=== PATIENT | male | born 1950 | race Caucasian/White ===

== ENCOUNTER 2021-10-01 09:39 | Inpatient (IN) ==
[2021-10-01] MEDS ORDERED: 0.9 % Sodium Chloride 1,000 ML ONE ×2 (10:43→11:14)
[2021-10-01] MEDS ORDERED: *HR* FentaNYL (PF) 100 MCG/2 ML VIAL ONE (11:13)
[2021-10-01] MEDS ORDERED: *HR* Heparin 10,000 UNIT/10 ML VIAL ONE (11:14)
[2021-10-01] MEDS ORDERED: *HR* Midazolam HCl 2 MG/2 ML VIAL ONE (11:14)
[2021-10-01] MEDS ORDERED: Nitroglycerin 1,000 MCG/5 ML VIAL IV ONE (11:14)
[2021-10-01] MEDS ORDERED: Heparin 1,000 UNITS/500 mL 500 ML ONE (11:14)
[2021-10-01] MEDS ORDERED: ISOVUE-370 200 ML INFUS..BTL ONE (11:14)
[2021-10-01] MEDS ORDERED: Perflutren Lipid Microsphere 1.3 ML in 0.9 % Sodium Chloride 8.7 ML IVP PRN (13:30)
[2021-10-01] MEDS ORDERED: Dextrose Gel 15 GM/37.5 ML TUBE PO PRN ×2 (14:14)
[2021-10-01] MEDS ORDERED: D5% in Water 1,000 ML IVC PRN (14:14)
[2021-10-01] MEDS ORDERED: *HR* Dextrose 50 % in Water (Syg) 50 ML SYRINGE IVP PRN (14:14)
[2021-10-01] MEDS: Insulin LISPRO 300 UNITS/3 ML VIAL SUBQ SCH (16:02)
[2021-10-01] MEDS: Metoprolol XL (24 HR) Succ 25 MG TAB.ER.24H PO SCH (16:03)
[2021-10-01 16:38] LABS: Basophils % 0.4 %; Eosinophils # 0.1 K/mcL (0.0-0.6); Eosinophils % 2.9 %; Hematocrit 37.7 % (37.5-50.1); Hemoglobin 12.2 g/dL (12.9-16.9); Immature Granulocytes % 0.4 % (0-4); Immature Platelets 6.6 % (1.1-6.1); Lymphocytes # 0.7 K/mcL (0.6-4.6); Lymphocytes % 14.5 %; Mean Corpuscular HGB Conc 32.4 g/dL (31.6-35.5); Mean Corpuscular Hemoglobin 27.5 pg (28.0-33.3); Mean Corpuscular Volume 85.1 fL (83.0-100.0); Mean Platelet Volume 11.3 fL (9.4-12.4); Monocytes # 0.4 K/mcL (0.0-1.3); Monocytes % 7.2 %; Neutrophils # 3.6 K/mcL (1.6-8.9); Platelet Count 129 K/mcL (140-400); Red Blood Count 4.43 M/mcL (4.19-5.50); Red Cell Distribution Width 14.8 % (11.5-14.5); Segmented Neutrophils % 74.6 %; White Blood Count 4.8 K/mcL (4.3-11.1)
[2021-10-01 16:54] LABS: BUN/Creatinine Ratio 23 (6-26); Blood Urea Nitrogen 17 mg/dL (8-23); Calcium 8.9 mg/dL (8.6-10.3); Carbon Dioxide 27 mEq/L (23-29); Chloride 108 mEq/L (98-107); Glucose 147 mg/dL (70-105); Osmolality,Calculated 292 (280-300); Phosphorous 3.2 mg/dL (2.7-4.5); Potassium 3.9 mEq/L (3.5-5.1); Sodium 139 mEq/L (136-145); eGFR For African Americans > 60 (> 60); eGFR For Non-African Americans > 60 (> 60)
[2021-10-01 20:13] LABS: Basophils % 0.4 %; Eosinophils # 0.1 K/mcL (0.0-0.6); Eosinophils % 1.8 %; Hematocrit 38.9 % (37.5-50.1); Hemoglobin 12.4 g/dL (12.9-16.9); Immature Granulocytes % 0.4 % (0-4); Lymphocytes # 0.6 K/mcL (0.6-4.6); Lymphocytes % 11.1 %; Mean Corpuscular HGB Conc 31.9 g/dL (31.6-35.5); Mean Corpuscular Hemoglobin 27.4 pg (28.0-33.3); Mean Corpuscular Volume 85.9 fL (83.0-100.0); Mean Platelet Volume 11.3 fL (9.4-12.4); Monocytes # 0.4 K/mcL (0.0-1.3); Monocytes % 6.7 %; Neutrophils # 4.6 K/mcL (1.6-8.9); Platelet Count 156 K/mcL (140-400); Red Blood Count 4.53 M/mcL (4.19-5.50); Red Cell Distribution Width 14.7 % (11.5-14.5); Segmented Neutrophils % 79.6 %; White Blood Count 5.7 K/mcL (4.3-11.1)
[2021-10-01 20:19] LABS: INR 1.2; Prothrombin Time 12.9 Seconds (9.4-12.1)
[2021-10-01 20:22] LABS: Activated Partial Thrombo Time 30.2 Seconds (26.0-36.0)
[2021-10-01] MEDS: Chlorhexidine Rinse 15 ML MOUTHWASH MM SCH (20:23)
[2021-10-01 20:26] LABS: Estimated Average Glucose 128 mg/dl; Hemoglobin A1C 6.1 %
[2021-10-01 20:31] LABS: BUN/Creatinine Ratio 20 (6-26); Blood Urea Nitrogen 17 mg/dL (8-23); Calcium 9.2 mg/dL (8.6-10.3); Carbon Dioxide 28 mEq/L (23-29); Chloride 107 mEq/L (98-107); Chol/HDL Ratio 3.2 (0-4.9); Cholesterol 105 mg/dL (< 200); Glucose 111 mg/dL (70-105); HDL Cholesterol 33 mg/dL (40-59); LDL Cholesterol,Calculated 56 mg/dL (< 100); Osmolality,Calculated 290 (280-300); Potassium 3.9 mEq/L (3.5-5.1); Sodium 139 mEq/L (136-145); Triglycerides 80 mg/dL (< 150); eGFR For African Americans > 60 (> 60); eGFR For Non-African Americans > 60 (> 60)
[2021-10-01] MEDS ORDERED: Insulin LISPRO 300 UNITS/3 ML VIAL SUBQ SCH (21:00)
[2021-10-02 01:17] LABS: Basophils % 0.3 %; Eosinophils # 0.1 K/mcL (0.0-0.6); Eosinophils % 2.1 %; Hematocrit 37.1 % (37.5-50.1); Hemoglobin 12.2 g/dL (12.9-16.9); Immature Granulocytes % 0.2 % (0-4); Lymphocytes # 0.9 K/mcL (0.6-4.6); Mean Corpuscular HGB Conc 32.9 g/dL (31.6-35.5); Mean Corpuscular Volume 85.3 fL (83.0-100.0); Mean Platelet Volume 11.3 fL (9.4-12.4); Monocytes # 0.5 K/mcL (0.0-1.3); Monocytes % 9.1 %; Neutrophils # 4.2 K/mcL (1.6-8.9); Platelet Count 144 K/mcL (140-400); Red Blood Count 4.35 M/mcL (4.19-5.50); Red Cell Distribution Width 14.6 % (11.5-14.5); Segmented Neutrophils % 73.3 %; White Blood Count 5.7 K/mcL (4.3-11.1)
[2021-10-02 01:37] LABS: BUN/Creatinine Ratio 20 (6-26); Blood Urea Nitrogen 17 mg/dL (8-23); Calcium 8.9 mg/dL (8.6-10.3); Carbon Dioxide 25 mEq/L (23-29); Chloride 107 mEq/L (98-107); Glucose 101 mg/dL (70-105); Osmolality,Calculated 292 (280-300); Phosphorous 3.5 mg/dL (2.7-4.5); Potassium 3.7 mEq/L (3.5-5.1); Sodium 140 mEq/L (136-145); eGFR For African Americans > 60 (> 60); eGFR For Non-African Americans > 60 (> 60)
[2021-10-02] MEDS ORDERED: Aspirin 81 MG TAB.CHEW PO ONE (06:00)
[2021-10-02] MEDS: Metoprolol XL (24 HR) Succ 25 MG TAB.ER.24H PO SCH (08:48)
[2021-10-02] MEDS: Chlorhexidine Rinse 15 ML MOUTHWASH MM SCH ×2 (08:48→20:38)
[2021-10-02] MEDS ORDERED: Aspirin Enteric Coated 81 MG Tablet PO SCH (09:00)
[2021-10-02] MEDS ORDERED: *HR* Etomidate 20 MG/10 ML AMPUL IVP ONE (10:05)
[2021-10-02] MEDS ORDERED: Famotidine 20 MG/2 ML VIAL ONE (10:05)
[2021-10-02] MEDS ORDERED: Calcium Gluconate 1,000 MG/10 ML VIAL ONE (10:05)
[2021-10-02] MEDS ORDERED: Protamine Sulfate 250 MG/25 ML VIAL IVP ONE (10:07)
[2021-10-02] MEDS ORDERED: *HR* Rocuronium Bromide 50 MG/5 ML VIAL ONE ×2 (10:09→13:11)
[2021-10-02] MEDS: Insulin LISPRO 300 UNITS/3 ML VIAL SUBQ SCH ×2 (11:06→13:45)
[2021-10-02] MEDS ORDERED: CeFAZolin Syr 2,000MG/20 ML 2,000 MG/20 ML SYRINGE IVPB ONE (11:30)
[2021-10-02] MEDS ORDERED: Norepinephrine 4 MG in 0.9 % Sodium Chloride 250 ML IVC PRN ×2 (12:00→19:14)
[2021-10-02] MEDS ORDERED: Buckersberg's Blood Cardioplegia PF SCH (12:00)
[2021-10-02] MEDS ORDERED: del Nido Cardioplegia Solution PF SCH (12:00)
[2021-10-02] MEDS ORDERED: del Nido Cardioplegia Solution PF ONE (12:00)
[2021-10-02] MEDS ORDERED: Heparin 15,000 UNIT in 0.9 % Sodium Chloride 500 ML IV ONE ×2 (12:00→19:14)
[2021-10-02] MEDS ORDERED: Papaverine 60 MG/2 ML VIAL IVP ONE (12:57)
[2021-10-02] MEDS ORDERED: Vancomycin 1,000 MG VIAL ONE (12:57)
[2021-10-02] MEDS ORDERED: *HR* FentaNYL (PF) 1,000 MCG/20 ML VIAL ONE (13:11)
[2021-10-02] MEDS ORDERED: *HR* Midazolam HCl 5 MG/5 ML VIAL IVP ONE (13:11)
[2021-10-02] MEDS ORDERED: niCARdipine 40 MG/200 ML MLS IVC ONE (13:15)
[2021-10-02] MEDS ORDERED: EPINEPHrine 1 MG/ML VIAL ONE (13:21)
[2021-10-02 13:51] LABS: ABG Base Excess 0 mEq/L (-2 to 3); ABG Chloride 105 mEq/L (98-107); ABG Glucose 100 mg/dL (60-95); ABG HCO3 26 mEq/L (21-27); ABG Ionized Calcium 1.25 mmol/L (1.15-1.35); ABG Oxygen Saturation 100 % (95-98); ABG PCO2 46 mmHg (35-45); ABG PH 7.36 pH Units (7.32-7.45); ABG PO2 319 mmHg (85-104); ABG TCO2 27 mEq/L (20-26)
[2021-10-02 15:42] LABS: ABG Base Excess -1 mEq/L (-2 to 3); ABG Chloride 105 mEq/L (98-107); ABG Glucose 119 mg/dL (60-95); ABG HCO3 25 mEq/L (21-27); ABG Ionized Calcium 1.18 mmol/L (1.15-1.35); ABG Oxygen Saturation 99 % (95-98); ABG PCO2 46 mmHg (35-45); ABG PH 7.34 pH Units (7.32-7.45); ABG PO2 133 mmHg (85-104); ABG TCO2 26 mEq/L (20-26)
[2021-10-02] MEDS ORDERED: Albumin Human 5% 12.5 GM/250 ML IV.SOLN ONE (15:57)
[2021-10-02] MEDS ORDERED: *HR* Phenylephrine 10 MG/ML VIAL ONE (16:59)
[2021-10-02 17:28] LABS: ABG Base Excess -3 mEq/L (-2 to 3); ABG Chloride 106 mEq/L (98-107); ABG Glucose 149 mg/dL (60-95); ABG HCO3 23 mEq/L (21-27); ABG Ionized Calcium 1.12 mmol/L (1.15-1.35); ABG Oxygen Saturation 99 % (95-98); ABG PCO2 48 mmHg (35-45); ABG PO2 150 mmHg (85-104); ABG TCO2 25 mEq/L (20-26)
[2021-10-02 18:05] LABS: ABG Base Excess -3 mEq/L (-2 to 3); ABG Chloride 106 mEq/L (98-107); ABG Glucose 140 mg/dL (60-95); ABG HCO3 24 mEq/L (21-27); ABG Ionized Calcium 1.32 mmol/L (1.15-1.35); ABG Oxygen Saturation 99 % (95-98); ABG PCO2 46 mmHg (35-45); ABG PH 7.32 pH Units (7.32-7.45); ABG PO2 138 mmHg (85-104); ABG TCO2 25 mEq/L (20-26)
[2021-10-02 18:59] LABS: ABG Base Excess -2 mEq/L (-2 to 3); ABG HCO3 23 mEq/L (21-27); ABG Oxygen Saturation 100 % (95-98); ABG PCO2 39 mmHg (35-45); ABG PH 7.38 pH Units (7.32-7.45); ABG PO2 288 mmHg (85-104); ABG TCO2 24 mEq/L (20-26); Blood Gas Modality ASSIST CONTROL; Blood Gas VT 510 cc
[2021-10-02] MEDS ORDERED: Potassium Chloride 40 MEQ/200 ML BAG IVPB PRN (19:14)
[2021-10-02] MEDS ORDERED: Calcium Gluconate 1gm/50mL 1 GM/50 ML BAG IVPB PRN (19:14)
[2021-10-02] MEDS ORDERED: Insulin Regular, Human 100 UNIT/ML IV PRN (19:14)
[2021-10-02] MEDS ORDERED: niCARdipine 20 MG/200 ML MLS IVC SCH (19:14)
[2021-10-02] MEDS ORDERED: D5% in Water 1,000 ML IVC PRN (19:14)
[2021-10-02] MEDS ORDERED: Ondansetron 4 MG/2 ML VIAL IVP PRN (19:14)
[2021-10-02] MEDS ORDERED: *HR* Promethazine 25 MG/ML VIAL IM PRN (19:14)
[2021-10-02] MEDS ORDERED: Dextrose Gel 15 GM/37.5 ML TUBE PO PRN ×2 (19:14)
[2021-10-02] MEDS ORDERED: *HR* Dextrose 50 % in Water (Syg) 50 ML SYRINGE IVP PRN (19:14)
[2021-10-02] MEDS ORDERED: *HR* FentaNYL (PF) 100 MCG/2 ML VIAL ONE (19:25)
[2021-10-02] MEDS: *HR* FentaNYL (PF) 100 MCG/2 ML VIAL IVP PRN (19:33)
[2021-10-02] MEDS: Albumin Human 5% 12.5 GM/250 ML IV.SOLN IVPB PRN ×4 (19:34→22:06)
[2021-10-02 19:35] LABS: Basophils % 0.3 %; Eosinophils # 0.1 K/mcL (0.0-0.6); Eosinophils % 0.8 %; Hematocrit 37.5 % (37.5-50.1); Hemoglobin 12.3 g/dL (12.9-16.9); Immature Granulocytes % 0.8 % (0-4); Lymphocytes # 0.7 K/mcL (0.6-4.6); Lymphocytes % 7.1 %; Mean Corpuscular HGB Conc 32.8 g/dL (31.6-35.5); Mean Corpuscular Hemoglobin 27.7 pg (28.0-33.3); Mean Corpuscular Volume 84.5 fL (83.0-100.0); Monocytes # 0.7 K/mcL (0.0-1.3); Neutrophils # 8.7 K/mcL (1.6-8.9); Platelet Count 127 K/mcL (140-400); Red Blood Count 4.44 M/mcL (4.19-5.50); Red Cell Distribution Width 14.5 % (11.5-14.5)
[2021-10-02] MEDS: Norepinephrine 4 MG/254 ML IV.SOLN IVC SCH (19:35)
[2021-10-02 19:37] LABS: White Blood Count 10.3 K/mcL (4.3-11.1)
[2021-10-02 19:40] LABS: INR 1.4
[2021-10-02 19:43] LABS: Activated Partial Thrombo Time 28.7 Seconds (26.0-36.0)
[2021-10-02 19:51] LABS: BUN/Creatinine Ratio 22 (6-26); Blood Urea Nitrogen 15 mg/dL (8-23); Calcium 8.6 mg/dL (8.6-10.3); Carbon Dioxide 23 mEq/L (23-29); Chloride 105 mEq/L (98-107); Glucose 153 mg/dL (70-105); Magnesium 1.7 mg/dL (1.6-2.6); Osmolality,Calculated 286 (280-300); Sodium 136 mEq/L (136-145); eGFR For African Americans > 60 (> 60); eGFR For Non-African Americans > 60 (> 60)
[2021-10-02] MEDS: Furosemide 20 MG/2 ML VIAL IVP SCH (20:59)
[2021-10-02] MEDS ORDERED: Insulin LISPRO 300 UNITS/3 ML VIAL SUBQ SCH (21:00)
[2021-10-02] MEDS: CeFAZolin 2 GM/120 ML BAG IVPB SCH (22:42)
[2021-10-02] MEDS: *HR* OxyCODONE/APAP 5/325 TABLET PO PRN (22:42)
[2021-10-02 23:24] LABS: ABG Base Excess -2 mEq/L (-2 to 3); ABG HCO3 23 mEq/L (21-27); ABG Oxygen Saturation 99 % (95-98); ABG PCO2 41 mmHg (35-45); ABG PH 7.36 pH Units (7.32-7.45); ABG PO2 122 mmHg (85-104); ABG TCO2 24 mEq/L (20-26); Blood Gas Modality CPAP/PS; Blood Gas Pressure Support 8 cm H2O
[2021-10-03 00:05] LABS: ABG Base Excess -2 mEq/L (-2 to 3); ABG HCO3 24 mEq/L (21-27); ABG Oxygen Saturation 96 % (95-98); ABG PCO2 45 mmHg (35-45); ABG PH 7.34 pH Units (7.32-7.45); ABG PO2 91 mmHg (85-104); ABG TCO2 25 mEq/L (20-26)
[2021-10-03] MEDS: *HR* FentaNYL (PF) 100 MCG/2 ML VIAL IVP PRN ×2 (00:50→06:17)
[2021-10-03 03:18] LABS: Basophils % 0.1 %; Hematocrit 31.6 % (37.5-50.1); Hemoglobin 10.5 g/dL (12.9-16.9); Immature Granulocytes % 0.4 % (0-4); Lymphocytes # 0.3 K/mcL (0.6-4.6); Mean Corpuscular HGB Conc 33.2 g/dL (31.6-35.5); Mean Corpuscular Hemoglobin 28.1 pg (28.0-33.3); Mean Corpuscular Volume 84.5 fL (83.0-100.0); Mean Platelet Volume 10.6 fL (9.4-12.4); Monocytes # 0.6 K/mcL (0.0-1.3); Monocytes % 6.8 %; Neutrophils # 7.4 K/mcL (1.6-8.9); Platelet Count 108 K/mcL (140-400); Red Blood Count 3.74 M/mcL (4.19-5.50); Red Cell Distribution Width 14.4 % (11.5-14.5); Segmented Neutrophils % 89.7 %; White Blood Count 8.3 K/mcL (4.3-11.1)
[2021-10-03 03:32] LABS: INR 1.4; Prothrombin Time 15.5 Seconds (9.4-12.1)
[2021-10-03 03:35] LABS: BUN/Creatinine Ratio 24 (6-26); Blood Urea Nitrogen 16 mg/dL (8-23); Calcium 8.2 mg/dL (8.6-10.3); Carbon Dioxide 22 mEq/L (23-29); Chloride 103 mEq/L (98-107); Glucose 138 mg/dL (70-105); Magnesium 1.8 mg/dL (1.6-2.6); Osmolality,Calculated 283 (280-300); Potassium 3.8 mEq/L (3.5-5.1); Sodium 135 mEq/L (136-145); eGFR For African Americans > 60 (> 60); eGFR For Non-African Americans > 60 (> 60)
[2021-10-03] MEDS: *HR* OxyCODONE/APAP 5/325 TABLET PO PRN ×4 (04:23→22:09)
[2021-10-03 05:55] LABS: ABG Base Excess -3 mEq/L (-2 to 3); ABG HCO3 21 mEq/L (21-27); ABG Oxygen Saturation 95 % (95-98); ABG PCO2 35 mmHg (35-45); ABG PH 7.39 pH Units (7.32-7.45); ABG PO2 77 mmHg (85-104); ABG TCO2 22 mEq/L (20-26)
[2021-10-03] MEDS ORDERED: *HR* LORazepam 2 MG/ML VIAL ONE (06:09)
[2021-10-03] MEDS ORDERED: *HR* LORazepam 2 MG/ML VIAL IVP ONE (06:13)
[2021-10-03] MEDS: Albumin Human 5% 12.5 GM/250 ML IV.SOLN IVPB PRN ×2 (06:19→06:41)
[2021-10-03 06:25] LABS: Basophils % 0.2 %; Hematocrit 33.8 % (37.5-50.1); Hemoglobin 11.2 g/dL (12.9-16.9); Immature Granulocytes % 0.4 % (0-4); Lymphocytes # 0.7 K/mcL (0.6-4.6); Lymphocytes % 5.3 %; Mean Corpuscular HGB Conc 33.1 g/dL (31.6-35.5); Mean Corpuscular Hemoglobin 27.7 pg (28.0-33.3); Mean Corpuscular Volume 83.7 fL (83.0-100.0); Mean Platelet Volume 11.1 fL (9.4-12.4); Neutrophils # 11.2 K/mcL (1.6-8.9); Platelet Count 149 K/mcL (140-400); Red Blood Count 4.04 M/mcL (4.19-5.50); Red Cell Distribution Width 14.6 % (11.5-14.5); Segmented Neutrophils % 86.1 %
[2021-10-03 06:34] LABS: INR 1.4
[2021-10-03 06:42] LABS: BUN/Creatinine Ratio 20 (6-26); Blood Urea Nitrogen 16 mg/dL (8-23); Calcium 8.8 mg/dL (8.6-10.3); Carbon Dioxide 20 mEq/L (23-29); Chloride 103 mEq/L (98-107); Glucose 156 mg/dL (70-105); Magnesium 1.8 mg/dL (1.6-2.6); Osmolality,Calculated 284 (280-300); Phosphorous 3.1 mg/dL (2.7-4.5); Potassium 3.8 mEq/L (3.5-5.1); Sodium 135 mEq/L (136-145); eGFR For African Americans > 60 (> 60); eGFR For Non-African Americans > 60 (> 60)
[2021-10-03] MEDS: CeFAZolin 2 GM/120 ML BAG IVPB SCH (07:03)
[2021-10-03] MEDS: Furosemide 20 MG/2 ML VIAL IVP SCH ×2 (07:50→18:25)
[2021-10-03] MEDS: Aspirin Enteric Coated 81 MG Tablet PO SCH (07:50)
[2021-10-03] MEDS: lisinopriL 10 MG TABLET PO SCH (07:50)
[2021-10-03] MEDS: Chlorhexidine Rinse 15 ML MOUTHWASH MM SCH ×2 (07:51→20:54)
[2021-10-03] MEDS ORDERED: Pantoprazole 40 MG VIAL IVP SCH (09:00)
[2021-10-03] MEDS ORDERED: Aspirin Enteric Coated 81 MG Tablet PO SCH (09:00)
[2021-10-03] MEDS ORDERED: *HR* Dextrose 50 % in Water (Syg) 50 ML SYRINGE IVP PRN (10:56)
[2021-10-03] MEDS ORDERED: D5% in Water 1,000 ML IVC PRN (10:56)
[2021-10-03] MEDS ORDERED: Dextrose Gel 15 GM/37.5 ML TUBE PO PRN ×2 (10:56)
[2021-10-03] MEDS ORDERED: *HR* LORazepam 2 MG/ML VIAL IVP PRN (11:42)
[2021-10-03] MEDS: Insulin LISPRO 300 UNITS/3 ML VIAL SUBQ SCH ×3 (12:11→19:41)
[2021-10-03] MEDS: Norepinephrine 4 MG/254 ML IV.SOLN IVC SCH ×3 (13:21→22:11)
[2021-10-03] MEDS ORDERED: 0.9 % Sodium Chloride 1,000 ML ONE (17:46)
[2021-10-03] MEDS: *HR* Heparin 5,000 UNIT/ML VIAL SQ SCH (18:25)
[2021-10-03] MEDS ORDERED: Insulin LISPRO 300 UNITS/3 ML VIAL SUBQ SCH (21:00)
[2021-10-03] MEDS: Acetaminophen 325 MG TABLET PO PRN (23:44)
[2021-10-04 03:47] LABS: VBG Ionized Calcium 1.11 mmol/L (1.15-1.35)
[2021-10-04 03:47] LABS: Basophils % 0.2 %; Eosinophils % 0.1 %; Hematocrit 32.8 % (37.5-50.1); Hemoglobin 10.6 g/dL (12.9-16.9); Immature Granulocytes % 0.7 % (0-4); Lymphocytes # 0.6 K/mcL (0.6-4.6); Lymphocytes % 5.9 %; Mean Corpuscular HGB Conc 32.3 g/dL (31.6-35.5); Mean Corpuscular Hemoglobin 27.5 pg (28.0-33.3); Mean Corpuscular Volume 85.2 fL (83.0-100.0); Mean Platelet Volume 11.2 fL (9.4-12.4); Monocytes % 9.9 %; Neutrophils # 8.7 K/mcL (1.6-8.9); Platelet Count 131 K/mcL (140-400); Red Blood Count 3.85 M/mcL (4.19-5.50); Red Cell Distribution Width 14.8 % (11.5-14.5); Segmented Neutrophils % 83.2 %; White Blood Count 10.4 K/mcL (4.3-11.1)
[2021-10-04 04:08] LABS: BUN/Creatinine Ratio 28 (6-26); Blood Urea Nitrogen 22 mg/dL (8-23); Calcium 8.7 mg/dL (8.6-10.3); Carbon Dioxide 26 mEq/L (23-29); Chloride 104 mEq/L (98-107); Glucose 141 mg/dL (70-105); Magnesium 2.2 mg/dL (1.6-2.6); Osmolality,Calculated 286 (280-300); Potassium 3.7 mEq/L (3.5-5.1); Sodium 135 mEq/L (136-145); eGFR For African Americans > 60 (> 60); eGFR For Non-African Americans > 60 (> 60)
[2021-10-04] MEDS: Norepinephrine 4 MG/254 ML IV.SOLN IVC SCH (04:43)
[2021-10-04] MEDS: *HR* Heparin 5,000 UNIT/ML VIAL SQ SCH ×2 (05:23→16:43)
[2021-10-04] MEDS: Aspirin Enteric Coated 81 MG Tablet PO SCH (08:16)
[2021-10-04] MEDS: Acetaminophen 325 MG TABLET PO PRN (08:16)
[2021-10-04] MEDS: Chlorhexidine Rinse 15 ML MOUTHWASH MM SCH (08:17)
[2021-10-04] MEDS: lisinopriL 10 MG TABLET PO SCH (08:18)
[2021-10-04] MEDS: Insulin LISPRO 300 UNITS/3 ML VIAL SUBQ SCH ×2 (08:24→11:39)
[2021-10-04] MEDS: Albumin Human 5% 12.5 GM/250 ML IV.SOLN IVC SCH ×2 (10:32→11:25)
[2021-10-04] MEDS: Furosemide 20 MG/2 ML VIAL IVP SCH (11:18)
[2021-10-04] MEDS: Albumin Human 5% 12.5 GM/250 ML IV.SOLN IVC PRN ×2 (14:29→16:43)
[2021-10-04] MEDS ORDERED: Insulin Regular, Human 100 UNIT/ML IV PRN (14:43)
[2021-10-04] MEDS ORDERED: Acetaminophen 325 MG TABLET PO PRN (14:43)
[2021-10-04] MEDS ORDERED: *HR* Dextrose 50 % in Water (Syg) 50 ML SYRINGE IVP PRN (14:43)
[2021-10-04] MEDS ORDERED: Calcium Gluconate 1gm/50mL 1 GM/50 ML BAG IVPB PRN (14:43)
[2021-10-04] MEDS ORDERED: D5% in Water 1,000 ML IVC PRN (14:43)
[2021-10-04] MEDS ORDERED: *HR* OxyCODONE/APAP 5/325 TABLET PO PRN (14:43)
[2021-10-04] MEDS ORDERED: Ondansetron 4 MG/2 ML VIAL IVP PRN (14:43)
[2021-10-04] MEDS: *HR* Metformin 500 MG TABLET PO SCH (16:40)
[2021-10-05] MEDS: *HR* Heparin 5,000 UNIT/ML VIAL SQ SCH ×2 (05:23→17:34)
[2021-10-05 06:33] LABS: Mean Platelet Volume 11.3 fL (9.4-12.4)
[2021-10-05 06:35] LABS: Basophils % 0.4 %; Eosinophils % 0.2 %; Hemoglobin 8.7 g/dL (12.9-16.9); Immature Granulocytes % 0.6 % (0-4); Immature Platelets 5.7 % (1.1-6.1); Lymphocytes # 0.3 K/mcL (0.6-4.6); Lymphocytes % 5.6 %; Mean Corpuscular HGB Conc 32.2 g/dL (31.6-35.5); Mean Corpuscular Hemoglobin 27.4 pg (28.0-33.3); Mean Corpuscular Volume 85.2 fL (83.0-100.0); Monocytes # 0.3 K/mcL (0.0-1.3); Red Blood Count 3.17 M/mcL (4.19-5.50); Red Cell Distribution Width 14.9 % (11.5-14.5); Segmented Neutrophils % 87.2 %
[2021-10-05 06:52] LABS: BUN/Creatinine Ratio 48 (6-26); Blood Urea Nitrogen 31 mg/dL (8-23); Carbon Dioxide 26 mEq/L (23-29); Chloride 105 mEq/L (98-107); Glucose 132 mg/dL (70-105); Magnesium 2.1 mg/dL (1.6-2.6); Osmolality,Calculated 294 (280-300); Potassium 3.8 mEq/L (3.5-5.1); Sodium 138 mEq/L (136-145); eGFR For African Americans > 60 (> 60); eGFR For Non-African Americans > 60 (> 60)
[2021-10-05 07:27] LABS: Neutrophils # 4.4 K/mcL (1.6-8.9); Platelet Count 92 K/mcL (140-400)
[2021-10-05 07:31] LABS: Platelet Estimate Decreased (Normal)
[2021-10-05] MEDS: Aspirin Enteric Coated 81 MG Tablet PO SCH (08:16)
[2021-10-05] MEDS: *HR* Metformin 500 MG TABLET PO SCH ×2 (08:17→17:34)
[2021-10-05] MEDS ORDERED: Potassium Chloride Elixir 20 MEQ/15 ML UDC PO ONE (10:14)
[2021-10-05] MEDS: Potassium Chloride Elixir 20 MEQ/15 ML UDC PO SCH (15:44)
[2021-10-05] MEDS: Furosemide 40 MG/4 ML VIAL IVP SCH (15:44)
[2021-10-06 03:45] LABS: Basophils % 0.2 %; Eosinophils # 0.1 K/mcL (0.0-0.6); Eosinophils % 0.9 %; Hemoglobin 9.4 g/dL (12.9-16.9); Immature Granulocytes % 0.6 % (0-4); Lymphocytes # 0.5 K/mcL (0.6-4.6); Lymphocytes % 8.4 %; Mean Corpuscular HGB Conc 32.4 g/dL (31.6-35.5); Mean Corpuscular Hemoglobin 27.6 pg (28.0-33.3); Mean Platelet Volume 10.8 fL (9.4-12.4); Monocytes # 0.4 K/mcL (0.0-1.3); Monocytes % 7.3 %; Neutrophils # 4.4 K/mcL (1.6-8.9); Platelet Count 140 K/mcL (140-400); Red Blood Count 3.41 M/mcL (4.19-5.50); Red Cell Distribution Width 15.2 % (11.5-14.5); Segmented Neutrophils % 82.6 %; White Blood Count 5.4 K/mcL (4.3-11.1)
[2021-10-06 04:13] LABS: BUN/Creatinine Ratio 46 (6-26); Blood Urea Nitrogen 31 mg/dL (8-23); Calcium 8.9 mg/dL (8.6-10.3); Carbon Dioxide 27 mEq/L (23-29); Chloride 107 mEq/L (98-107); Glucose 131 mg/dL (70-105); Magnesium 2.1 mg/dL (1.6-2.6); Osmolality,Calculated 300 (280-300); Sodium 141 mEq/L (136-145); eGFR For African Americans > 60 (> 60); eGFR For Non-African Americans > 60 (> 60)
[2021-10-06] MEDS: *HR* Heparin 5,000 UNIT/ML VIAL SQ SCH ×2 (06:25→17:22)
[2021-10-06] MEDS: Potassium Chloride Elixir 20 MEQ/15 ML UDC PO SCH (08:02)
[2021-10-06] MEDS: Aspirin Enteric Coated 81 MG Tablet PO SCH (08:03)
[2021-10-06] MEDS: Furosemide 40 MG/4 ML VIAL IVP SCH (08:04)
[2021-10-06] MEDS: *HR* Metformin 500 MG TABLET PO SCH (08:04)
[2021-10-07 04:46] LABS: Hematocrit 31.9 % (37.5-50.1); Hemoglobin 10.4 g/dL (12.9-16.9); Mean Corpuscular HGB Conc 32.6 g/dL (31.6-35.5); Mean Corpuscular Hemoglobin 27.9 pg (28.0-33.3); Mean Corpuscular Volume 85.5 fL (83.0-100.0); Mean Platelet Volume 11.1 fL (9.4-12.4); Platelet Count 180 K/mcL (140-400); Red Blood Count 3.73 M/mcL (4.19-5.50); Red Cell Distribution Width 15.4 % (11.5-14.5); White Blood Count 5.2 K/mcL (4.3-11.1)
[2021-10-07 05:07] LABS: BUN/Creatinine Ratio 51 (6-26); Blood Urea Nitrogen 35 mg/dL (8-23); Calcium 9.3 mg/dL (8.6-10.3); Carbon Dioxide 25 mEq/L (23-29); Chloride 107 mEq/L (98-107); Glucose 152 mg/dL (70-105); Magnesium 2.1 mg/dL (1.6-2.6); Osmolality,Calculated 303 (280-300); Potassium 4.1 mEq/L (3.5-5.1); Sodium 141 mEq/L (136-145); eGFR For African Americans > 60 (> 60); eGFR For Non-African Americans > 60 (> 60)
[2021-10-07] MEDS: *HR* Heparin 5,000 UNIT/ML VIAL SQ SCH (06:23)
[2021-10-07] MEDS: Furosemide 40 MG/4 ML VIAL IVP SCH (08:48)
[2021-10-07] MEDS: Potassium Chloride Elixir 20 MEQ/15 ML UDC PO SCH (08:49)
[2021-10-07] MEDS: Aspirin Enteric Coated 81 MG Tablet PO SCH (08:51)
[2021-10-07] MEDS ORDERED: Albumin Human 5% 12.5 GM/250 ML IV.SOLN IVC SCH (13:00)
[2021-10-07] MEDS ORDERED: Perflutren Lipid Microsphere 1.3 ML in 0.9 % Sodium Chloride 8.7 ML IVP PRN (14:43)
[2021-10-07] MEDS ORDERED: Amiodarone Premix 150 MG/100 ML BAG IVPB ONE ×2 (14:43→14:45)
[2021-10-07] MEDS ORDERED: Amiodarone Premix 360 MG/200 ML BAG IVC ONE (14:45)
[2021-10-07 14:54] LABS: ABG Base Excess 2 mEq/L (-2 to 3); ABG HCO3 25 mEq/L (21-27); ABG Oxygen Saturation 94 % (95-98); ABG PCO2 31 mmHg (35-45); ABG PO2 63 mmHg (85-104); ABG TCO2 25 mEq/L (20-26)
[2021-10-07] MEDS ORDERED: Amiodarone 450 MG in 0.9 % Sodium Chloride Excel Bg 241 ML IVC ONE (15:00)
[2021-10-07] MEDS ORDERED: *HR* FentaNYL (PF) 100 MCG/2 ML VIAL ONE (15:36)
[2021-10-07] MEDS ORDERED: *HR* Midazolam HCl 2 MG/2 ML VIAL ONE (15:36)
[2021-10-07] MEDS ORDERED: 0.9 % Sodium Chloride 1,000 ML ONE ×2 (15:37)
[2021-10-07] MEDS ORDERED: Heparin 1,000 UNITS/500 mL 500 ML ONE ×2 (15:37→16:57)
[2021-10-07] MEDS ORDERED: Nitroglycerin 1,000 MCG/5 ML VIAL IV ONE (15:37)
[2021-10-07] MEDS ORDERED: *HR* Heparin 10,000 UNIT/10 ML VIAL ONE ×2 (15:37→16:58)
[2021-10-07] MEDS ORDERED: ISOVUE-370 200 ML INFUS..BTL ONE (15:37)
[2021-10-07] MEDS ORDERED: *HR* Rocuronium Bromide 50 MG/5 ML VIAL ONE ×2 (17:30→19:01)
[2021-10-07] MEDS ORDERED: *HR* Midazolam HCl 5 MG/5 ML VIAL IVP ONE (17:30)
[2021-10-07] MEDS ORDERED: *HR* Etomidate 20 MG/10 ML AMPUL IVP ONE (17:30)
[2021-10-07] MEDS ORDERED: *HR* FentaNYL (PF) 250 MCG/5 ML VIAL ONE ×2 (17:30→19:28)
[2021-10-07] MEDS ORDERED: Lidocaine 2% Syringe 100 MG/5 ML ONE (17:33)
[2021-10-07] MEDS ORDERED: Norepinephrine 4 MG/254 ML IV.SOLN IVC SCH (17:45)
[2021-10-07] MEDS ORDERED: *HR* Magnesium Sulfate 1 GM/2 ML VIAL ONE (18:10)
[2021-10-07] MEDS ORDERED: Famotidine 20 MG/2 ML VIAL ONE (18:10)
[2021-10-07 18:11] LABS: ABG Base Excess -2 mEq/L (-2 to 3); ABG Chloride 110 mEq/L (98-107); ABG Glucose 142 mg/dL (60-95); ABG HCO3 22 mEq/L (21-27); ABG Ionized Calcium 1.12 mmol/L (1.15-1.35); ABG Oxygen Saturation 100 % (95-98); ABG PCO2 35 mmHg (35-45); ABG PH 7.41 pH Units (7.32-7.45); ABG PO2 334 mmHg (85-104); ABG TCO2 23 mEq/L (20-26)
[2021-10-07] MEDS ORDERED: Calcium Gluconate 1,000 MG/10 ML VIAL ONE (18:23)
[2021-10-07] MEDS ORDERED: Norepinephrine 4 MG in 0.9 % Sodium Chloride 250 ML IVC PRN ×2 (18:25→21:36)
[2021-10-07] MEDS ORDERED: del Nido Cardioplegia Solution PF SCH (18:30)
[2021-10-07] MEDS ORDERED: Heparin 15,000 UNIT in 0.9 % Sodium Chloride 500 ML IV ONE (18:30)
[2021-10-07] MEDS ORDERED: del Nido Cardioplegia Solution PF ONE (18:30)
[2021-10-07] MEDS ORDERED: Buckersberg's Blood Cardioplegia PF SCH ×2 (18:30)
[2021-10-07 19:15] LABS: ABG Base Excess -3 mEq/L (-2 to 3); ABG Chloride 110 mEq/L (98-107); ABG Glucose 153 mg/dL (60-95); ABG HCO3 21 mEq/L (21-27); ABG Ionized Calcium 1.16 mmol/L (1.15-1.35); ABG Oxygen Saturation 100 % (95-98); ABG PCO2 32 mmHg (35-45); ABG PH 7.43 pH Units (7.32-7.45); ABG PO2 305 mmHg (85-104); ABG TCO2 22 mEq/L (20-26)
[2021-10-07] MEDS ORDERED: *HR* Propofol 200 MG/20 ML VIAL IVP ONE (19:26)
[2021-10-07] MEDS ORDERED: Papaverine 60 MG/2 ML VIAL IVP ONE (19:47)
[2021-10-07] MEDS ORDERED: Protamine Sulfate 250 MG/25 ML VIAL IVP ONE (19:51)
[2021-10-07 20:10] LABS: ABG Base Excess -2 mEq/L (-2 to 3); ABG Chloride 108 mEq/L (98-107); ABG Glucose 171 mg/dL (60-95); ABG HCO3 23 mEq/L (21-27); ABG Ionized Calcium 1.23 mmol/L (1.15-1.35); ABG Oxygen Saturation 100 % (95-98); ABG PCO2 38 mmHg (35-45); ABG PH 7.39 pH Units (7.32-7.45); ABG PO2 375 mmHg (85-104); ABG TCO2 24 mEq/L (20-26)
[2021-10-07] MEDS ORDERED: Amiodarone Premix 360 MG/200 ML BAG IVC SCH (20:46)
[2021-10-07] MEDS ORDERED: niCARdipine 20 MG/200 ML MLS IVC ONE (21:34)
[2021-10-07] MEDS: niCARdipine 20 MG/200 ML MLS IVC SCH ×2 (21:35→23:34)
[2021-10-07] MEDS ORDERED: Calcium Gluconate 1gm/50mL 1 GM/50 ML BAG IVPB PRN (21:36)
[2021-10-07] MEDS ORDERED: Sodium Bicarbonate 10 MEQ, Potassium Chloride 80 MEQ in CARDIOPLEGIC SOLUTION NO.1 1,00... PF SCH (21:36)
[2021-10-07] MEDS ORDERED: Potassium Chloride 40 MEQ/200 ML BAG IVPB PRN (21:36)
[2021-10-07] MEDS ORDERED: Ondansetron 4 MG/2 ML VIAL IVP PRN (21:36)
[2021-10-07] MEDS ORDERED: Insulin LISPRO 300 UNITS/3 ML VIAL SUBQ PRN (21:36)
[2021-10-07] MEDS ORDERED: *HR* Dextrose 50 % in Water (Syg) 50 ML SYRINGE IVP PRN (21:36)
[2021-10-07] MEDS ORDERED: Acetaminophen 325 MG TABLET PO PRN (21:36)
[2021-10-07 21:38] LABS: Basophils % 0.2 %; Eosinophils # 0.1 K/mcL (0.0-0.6); Eosinophils % 1.5 %; Hematocrit 26.3 % (37.5-50.1); Immature Granulocytes % 0.7 % (0-4); Lymphocytes # 0.5 K/mcL (0.6-4.6); Lymphocytes % 5.8 %; Mean Corpuscular HGB Conc 32.7 g/dL (31.6-35.5); Mean Corpuscular Volume 85.7 fL (83.0-100.0); Monocytes # 0.4 K/mcL (0.0-1.3); Monocytes % 4.8 %; Neutrophils # 7.4 K/mcL (1.6-8.9); Platelet Count 144 K/mcL (140-400); Red Blood Count 3.07 M/mcL (4.19-5.50); Red Cell Distribution Width 15.4 % (11.5-14.5)
[2021-10-07 21:39] LABS: Hemoglobin 8.6 g/dL (12.9-16.9); White Blood Count 8.5 K/mcL (4.3-11.1)
[2021-10-07 21:44] LABS: INR 1.6; Prothrombin Time 17.6 Seconds (9.4-12.1)
[2021-10-07 21:46] LABS: VBG Ionized Calcium 1.16 mmol/L (1.15-1.35)
[2021-10-07 21:48] LABS: Activated Partial Thrombo Time 62.3 Seconds (26.0-36.0)
[2021-10-07] MEDS: *HR* FentaNYL (PF) 100 MCG/2 ML VIAL IVP PRN (21:52)
[2021-10-07] MEDS ORDERED: Amiodarone 450 MG in 0.9 % Sodium Chloride Excel Bg 241 ML IVC SCH (22:00)
[2021-10-07 22:03] LABS: BUN/Creatinine Ratio 59 (6-26); Blood Urea Nitrogen 33 mg/dL (8-23); Calcium 8.4 mg/dL (8.6-10.3); Carbon Dioxide 18 mEq/L (23-29); Chloride 108 mEq/L (98-107); Glucose 196 mg/dL (70-105); Osmolality,Calculated 295 (280-300); Potassium 4.4 mEq/L (3.5-5.1); Sodium 136 mEq/L (136-145); eGFR For African Americans > 60 (> 60); eGFR For Non-African Americans > 60 (> 60)
[2021-10-07 23:24] LABS: Magnesium 2.1 mg/dL (1.6-2.6)
[2021-10-07] MEDS: CeFAZolin 2 GM/120 ML BAG IVPB SCH (23:44)
[2021-10-08 00:14] LABS: ABG Base Excess -3 mEq/L (-2 to 3); ABG HCO3 21 mEq/L (21-27); ABG Oxygen Saturation 94 % (95-98); ABG PCO2 30 mmHg (35-45); ABG PH 7.45 pH Units (7.32-7.45); ABG PO2 66 mmHg (85-104); ABG TCO2 22 mEq/L (20-26); Blood Gas Pressure Support 10 cm H2O
[2021-10-08] MEDS: *HR* FentaNYL (PF) 100 MCG/2 ML VIAL IVP PRN ×2 (00:19→02:23)
[2021-10-08 01:45] LABS: ABG Base Excess -1 mEq/L (-2 to 3); ABG HCO3 23 mEq/L (21-27); ABG Oxygen Saturation 100 % (95-98); ABG PCO2 34 mmHg (35-45); ABG PH 7.44 pH Units (7.32-7.45); ABG PO2 390 mmHg (85-104); ABG TCO2 24 mEq/L (20-26); Blood Gas Modality AF; Blood Gas VT 500 cc
[2021-10-08 04:28] LABS: ABG Base Excess 0 mEq/L (-2 to 3); ABG HCO3 24 mEq/L (21-27); ABG Oxygen Saturation 100 % (95-98); ABG PCO2 35 mmHg (35-45); ABG PH 7.44 pH Units (7.32-7.45); ABG PO2 267 mmHg (85-104); ABG TCO2 25 mEq/L (20-26); Blood Gas Modality ASSIST CONTROL; Blood Gas VT 500 cc
[2021-10-08 04:45] LABS: Eosinophils % 0.2 %; Hematocrit 27.8 % (37.5-50.1); Hemoglobin 9.1 g/dL (12.9-16.9); Immature Granulocytes % 0.5 % (0-4); Lymphocytes # 0.3 K/mcL (0.6-4.6); Lymphocytes % 4.2 %; Mean Corpuscular HGB Conc 32.7 g/dL (31.6-35.5); Mean Corpuscular Hemoglobin 27.7 pg (28.0-33.3); Mean Corpuscular Volume 84.5 fL (83.0-100.0); Mean Platelet Volume 11.6 fL (9.4-12.4); Monocytes # 0.5 K/mcL (0.0-1.3); Monocytes % 7.3 %; Neutrophils # 5.6 K/mcL (1.6-8.9); Platelet Count 165 K/mcL (140-400); Red Blood Count 3.29 M/mcL (4.19-5.50); Red Cell Distribution Width 15.3 % (11.5-14.5); Segmented Neutrophils % 87.8 %; White Blood Count 6.4 K/mcL (4.3-11.1)
[2021-10-08 04:51] LABS: INR 1.4; Prothrombin Time 16.1 Seconds (9.4-12.1)
[2021-10-08 05:00] LABS: BUN/Creatinine Ratio 56 (6-26); Blood Urea Nitrogen 33 mg/dL (8-23); Calcium 8.6 mg/dL (8.6-10.3); Carbon Dioxide 23 mEq/L (23-29); Chloride 109 mEq/L (98-107); Glucose 127 mg/dL (70-105); Magnesium 2.1 mg/dL (1.6-2.6); Osmolality,Calculated 299 (280-300); Potassium 4.1 mEq/L (3.5-5.1); Sodium 140 mEq/L (136-145); eGFR For African Americans > 60 (> 60); eGFR For Non-African Americans > 60 (> 60)
[2021-10-08] MEDS ORDERED: Albumin 25% 12.5gm/50mL 12.5 GM/50 ML IV.SOLN IVPB ONE (05:53)
[2021-10-08] MEDS ORDERED: Bumetanide 1 MG/4 ML VIAL IVP ONE (05:54)
[2021-10-08] MEDS ORDERED: Albumin 25% 12.5gm/50mL 12.5 GM/50 ML IV.SOLN ONE (06:10)
[2021-10-08] MEDS: Albumin 25% 12.5gm/50mL 12.5 GM/50 ML IV.SOLN IVPB ONE ×2 (06:11→06:21)
[2021-10-08] MEDS: *HR* Heparin 5,000 UNIT/ML VIAL SQ SCH ×2 (06:12→18:13)
[2021-10-08] MEDS ORDERED: Amiodarone 150 MG in D5% in Water 100 ML IVPB ONE (06:18)
[2021-10-08] MEDS ORDERED: Amiodarone Premix 150 MG/100 ML BAG IVPB ONE (06:45)
[2021-10-08] MEDS: *HR* OxyCODONE/APAP 5/325 TABLET PO PRN ×2 (07:02→13:38)
[2021-10-08] MEDS: CeFAZolin 2 GM/120 ML BAG IVPB SCH (07:49)
[2021-10-08] MEDS: Chlorhexidine Rinse 15 ML MOUTHWASH MM SCH ×2 (08:03→19:36)
[2021-10-08] MEDS ORDERED: Furosemide 40 MG/4 ML VIAL IVP SCH (09:00)
[2021-10-08] MEDS ORDERED: Furosemide 20 MG/2 ML VIAL IVP SCH (09:00)
[2021-10-08] MEDS ORDERED: Potassium Chloride Elixir 20 MEQ/15 ML UDC PO SCH (09:00)
[2021-10-08 09:16] LABS: ABG Base Excess -1 mEq/L (-2 to 3); ABG HCO3 23 mEq/L (21-27); ABG Oxygen Saturation 99 % (95-98); ABG PCO2 32 mmHg (35-45); ABG PH 7.46 pH Units (7.32-7.45); ABG PO2 133 mmHg (85-104); ABG TCO2 24 mEq/L (20-26); Blood Gas Modality CPAP/PS; Blood Gas VT 686 cc
[2021-10-08] MEDS ORDERED: Albumin Human 5% 12.5 GM/250 ML IV.SOLN IVPB PRN (11:02)
[2021-10-08 11:58] LABS: ABG Base Excess -1 mEq/L (-2 to 3); ABG HCO3 23 mEq/L (21-27); ABG Oxygen Saturation 98 % (95-98); ABG PCO2 34 mmHg (35-45); ABG PH 7.44 pH Units (7.32-7.45); ABG PO2 97 mmHg (85-104); ABG TCO2 24 mEq/L (20-26)
[2021-10-08] MEDS ORDERED: 0.9 % Sodium Chloride 1,000 ML ONE (12:07)
[2021-10-08] MEDS: 0.9 % Sodium Chloride 1,000 ML IVC SCH (13:37)
[2021-10-08] MEDS: Aspirin Enteric Coated 81 MG Tablet PO SCH (13:38)
[2021-10-08] MEDS: niCARdipine 20 MG/200 ML MLS IVC SCH ×6 (13:38→23:06)
[2021-10-08] MEDS: Pantoprazole 40 MG VIAL IVP SCH (13:38)
[2021-10-08] MEDS: Artificial Tears SOLN 15 ML BOTTLE LEFT EYE SCH ×3 (13:39→19:31)
[2021-10-09] MEDS: niCARdipine 20 MG/200 ML MLS IVC SCH ×3 (02:03→14:13)
[2021-10-09 03:45] LABS: Basophils % 0.2 %; Eosinophils % 0.3 %; Hematocrit 25.2 % (37.5-50.1); Immature Granulocytes % 0.5 % (0-4); Lymphocytes # 0.4 K/mcL (0.6-4.6); Mean Corpuscular HGB Conc 31.7 g/dL (31.6-35.5); Mean Corpuscular Hemoglobin 27.6 pg (28.0-33.3); Mean Corpuscular Volume 86.9 fL (83.0-100.0); Mean Platelet Volume 11.6 fL (9.4-12.4); Monocytes # 0.5 K/mcL (0.0-1.3); Monocytes % 8.2 %; Platelet Count 131 K/mcL (140-400); Red Cell Distribution Width 15.6 % (11.5-14.5); Segmented Neutrophils % 83.8 %
[2021-10-09 03:50] LABS: VBG Ionized Calcium 1.13 mmol/L (1.15-1.35)
[2021-10-09 04:09] LABS: BUN/Creatinine Ratio 54 (6-26); Blood Urea Nitrogen 37 mg/dL (8-23); Calcium 8.7 mg/dL (8.6-10.3); Carbon Dioxide 25 mEq/L (23-29); Chloride 106 mEq/L (98-107); Glucose 152 mg/dL (70-105); Magnesium 2.1 mg/dL (1.6-2.6); Osmolality,Calculated 302 (280-300); Phosphorous 3.1 mg/dL (2.7-4.5); Potassium 3.9 mEq/L (3.5-5.1); Sodium 140 mEq/L (136-145); eGFR For African Americans > 60 (> 60); eGFR For Non-African Americans > 60 (> 60)
[2021-10-09] MEDS: *HR* Heparin 5,000 UNIT/ML VIAL SQ SCH (06:08)
[2021-10-09] MEDS: *HR* OxyCODONE/APAP 5/325 TABLET PO PRN (08:38)
[2021-10-09] MEDS: Aspirin Enteric Coated 81 MG Tablet PO SCH (08:39)
[2021-10-09] MEDS: Chlorhexidine Rinse 15 ML MOUTHWASH MM SCH ×2 (08:39→21:23)
[2021-10-09] MEDS: Artificial Tears SOLN 15 ML BOTTLE LEFT EYE SCH ×2 (10:13→14:12)
[2021-10-09] MEDS: 0.9 % Sodium Chloride 1,000 ML IVC SCH ×2 (10:15→18:43)
[2021-10-09] MEDS: Insulin LISPRO 300 UNITS/3 ML VIAL SUBQ SCH (12:51)
[2021-10-09] MEDS ORDERED: *HR* Acetaminophen w/Cod 300-30 mg 1 TAB TABLET PO PRN (13:34)
[2021-10-09] MEDS: Pantoprazole 40 MG VIAL IVP SCH (14:21)
[2021-10-09] MEDS ORDERED: *HR* Heparin 5,000 UNIT/ML VIAL SQ SCH (18:00)
[2021-10-09] MEDS ORDERED: Insulin LISPRO 300 UNITS/3 ML VIAL SUBQ SCH (21:00)
[2021-10-10] MEDS ORDERED: Acetaminophen 325 MG TABLET PO PRN (04:07)
[2021-10-10] MEDS ORDERED: Insulin LISPRO 300 UNITS/3 ML VIAL SUBQ PRN (04:07)
[2021-10-10] MEDS ORDERED: Ondansetron 4 MG/2 ML VIAL IVP PRN (04:07)
[2021-10-10] MEDS ORDERED: 0.9 % Sodium Chloride 1,000 ML ONE ×2 (04:39→12:53)
[2021-10-10] MEDS ORDERED: Albumin 25% 25gram/100mL 25 GM/100 ML IV.SOLN IVPB ONE ×4 (04:45→17:00)
[2021-10-10] MEDS ORDERED: 0.9 % Sodium Chloride 500 ML IVC ONE (04:45)
[2021-10-10] MEDS ORDERED: Albumin 25% 25gram/100mL 25 GM/100 ML IV.SOLN ONE (04:48)
[2021-10-10 05:11] LABS: BUN/Creatinine Ratio 48 (6-26); Blood Urea Nitrogen 48 mg/dL (8-23); Calcium 8.4 mg/dL (8.6-10.3); Carbon Dioxide 21 mEq/L (23-29); Chloride 108 mEq/L (98-107); Glucose 193 mg/dL (70-105); Magnesium 2.3 mg/dL (1.6-2.6); Osmolality,Calculated 310 (280-300); Phosphorous 3.9 mg/dL (2.7-4.5); Potassium 4.5 mEq/L (3.5-5.1); Sodium 141 mEq/L (136-145); eGFR For African Americans > 60 (> 60); eGFR For Non-African Americans > 60 (> 60)
[2021-10-10 05:59] LABS: Basophils % 0.1 %; Eosinophils % 0.1 %; Hematocrit 24.9 % (37.5-50.1); Hemoglobin 7.9 g/dL (12.9-16.9); Immature Granulocytes % 2.5 % (0-4); Lymphocytes # 0.5 K/mcL (0.6-4.6); Lymphocytes % 6.7 %; Mean Corpuscular HGB Conc 31.7 g/dL (31.6-35.5); Mean Corpuscular Hemoglobin 27.8 pg (28.0-33.3); Mean Corpuscular Volume 87.7 fL (83.0-100.0); Mean Platelet Volume 12.3 fL (9.4-12.4); Monocytes # 0.6 K/mcL (0.0-1.3); Monocytes % 7.4 %; Neutrophils # 6.7 K/mcL (1.6-8.9); Platelet Count 120 K/mcL (140-400); Red Blood Count 2.84 M/mcL (4.19-5.50); Red Cell Distribution Width 15.8 % (11.5-14.5); Segmented Neutrophils % 83.2 %
[2021-10-10] MEDS: Aspirin Enteric Coated 81 MG Tablet PO SCH (08:04)
[2021-10-10] MEDS: Artificial Tears SOLN 15 ML BOTTLE LEFT EYE SCH ×4 (08:06→21:43)
[2021-10-10] MEDS: Insulin LISPRO 300 UNITS/3 ML VIAL SUBQ SCH ×4 (08:20→20:40)
[2021-10-10] MEDS ORDERED: Chlorhexidine Rinse 15 ML MOUTHWASH MM SCH (09:00)
[2021-10-10] MEDS ORDERED: 0.9 % Sodium Chloride 250 ML ONE ×2 (09:46→12:29)
[2021-10-10 13:23] LABS: Hematocrit 27.3 % (37.5-50.1)
[2021-10-10] MEDS: 0.9 % Sodium Chloride 1,000 ML IVC SCH (14:10)
[2021-10-10] MEDS: Pantoprazole 40 MG VIAL IVP SCH (14:12)
[2021-10-10] MEDS ORDERED: Bumetanide 1 MG/4 ML VIAL IVP ONE (15:07)
[2021-10-10] MEDS: Norepinephrine 4 MG/254 ML IV.SOLN IVC SCH (20:48)
[2021-10-11] MEDS: Artificial Tears SOLN 15 ML BOTTLE LEFT EYE SCH ×6 (00:06→20:35)
[2021-10-11] MEDS: Insulin LISPRO 300 UNITS/3 ML VIAL SUBQ SCH ×5 (00:06→19:23)
[2021-10-11] MEDS: niCARdipine 20 MG/200 ML MLS IVC SCH ×2 (00:07→00:08)
[2021-10-11] MEDS: *HR* Heparin 5,000 UNIT/ML VIAL SQ SCH (00:08)
[2021-10-11 03:43] LABS: Basophils % 0.2 %; Eosinophils % 0.3 %
[2021-10-11 03:45] LABS: Hemoglobin 8.3 g/dL (12.9-16.9); Immature Granulocytes % 1.7 % (0-4); Immature Platelets 15.8 % (1.1-6.1); Lymphocytes # 0.4 K/mcL (0.6-4.6); Lymphocytes % 6.3 %; Mean Corpuscular HGB Conc 31.9 g/dL (31.6-35.5); Mean Corpuscular Hemoglobin 27.7 pg (28.0-33.3); Mean Corpuscular Volume 86.7 fL (83.0-100.0); Mean Platelet Volume 12.4 fL (9.4-12.4); Monocytes # 0.5 K/mcL (0.0-1.3); Monocytes % 6.8 %; Neutrophils # 5.6 K/mcL (1.6-8.9); Nucleated Red Blood Cells 0.9 /100 WBC (0); Red Cell Distribution Width 16.3 % (11.5-14.5); Segmented Neutrophils % 84.7 %; White Blood Count 6.6 K/mcL (4.3-11.1)
[2021-10-11 03:49] LABS: Platelet Count 93 K/mcL (140-400)
[2021-10-11 03:52] LABS: BUN/Creatinine Ratio 58 (6-26); Blood Urea Nitrogen 51 mg/dL (8-23); Calcium 8.4 mg/dL (8.6-10.3); Carbon Dioxide 23 mEq/L (23-29); Chloride 106 mEq/L (98-107); Glucose 167 mg/dL (70-105); Osmolality,Calculated 301 (280-300); Potassium 3.7 mEq/L (3.5-5.1); Sodium 137 mEq/L (136-145); eGFR For African Americans > 60 (> 60); eGFR For Non-African Americans > 60 (> 60)
[2021-10-11] MEDS: Norepinephrine 4 MG/254 ML IV.SOLN IVC SCH (05:50)
[2021-10-11] MEDS: Aspirin Enteric Coated 81 MG Tablet PO SCH (07:31)
[2021-10-11] MEDS ORDERED: *HR* Midazolam HCl 2 MG/2 ML VIAL ONE (10:52)
[2021-10-11] MEDS ORDERED: 0.9 % Sodium Chloride 500 ML ONE (10:52)
[2021-10-11] MEDS ORDERED: *HR* FentaNYL (PF) 100 MCG/2 ML VIAL ONE (10:52)
[2021-10-11] MEDS: Pantoprazole 40 MG VIAL IVP SCH (13:58)
[2021-10-12 03:50] LABS: Basophils % 0.1 %; Eosinophils % 0.2 %; Hemoglobin 8.5 g/dL (12.9-16.9); Immature Granulocytes % 1.7 % (0-4); Immature Platelets 17.1 % (1.1-6.1); Lymphocytes # 0.3 K/mcL (0.6-4.6); Lymphocytes % 3.2 %; Mean Corpuscular HGB Conc 31.5 g/dL (31.6-35.5); Mean Corpuscular Hemoglobin 27.7 pg (28.0-33.3); Mean Corpuscular Volume 87.9 fL (83.0-100.0); Mean Platelet Volume 12.4 fL (9.4-12.4); Monocytes # 0.5 K/mcL (0.0-1.3); Monocytes % 6.3 %; Neutrophils # 7.4 K/mcL (1.6-8.9); Nucleated Red Blood Cells 1.2 /100 WBC (0); Red Blood Count 3.07 M/mcL (4.19-5.50); Red Cell Distribution Width 16.5 % (11.5-14.5); Segmented Neutrophils % 88.5 %; White Blood Count 8.4 K/mcL (4.3-11.1)
[2021-10-12 03:52] LABS: Platelet Count 68 K/mcL (140-400)
[2021-10-12 04:06] LABS: BUN/Creatinine Ratio 68 (6-26); Blood Urea Nitrogen 52 mg/dL (8-23); Calcium 8.5 mg/dL (8.6-10.3); Carbon Dioxide 21 mEq/L (23-29); Chloride 106 mEq/L (98-107); Glucose 174 mg/dL (70-105); Osmolality,Calculated 300 (280-300); Potassium 3.8 mEq/L (3.5-5.1); Sodium 136 mEq/L (136-145); eGFR For African Americans > 60 (> 60); eGFR For Non-African Americans > 60 (> 60)
[2021-10-12] MEDS: Norepinephrine 4 MG/254 ML IV.SOLN IVC SCH (05:48)
[2021-10-12] MEDS: Insulin LISPRO 300 UNITS/3 ML VIAL SUBQ SCH ×4 (07:31→21:22)
[2021-10-12] MEDS: Artificial Tears SOLN 15 ML BOTTLE LEFT EYE SCH ×4 (07:32→21:21)
[2021-10-12] MEDS: Aspirin Enteric Coated 81 MG Tablet PO SCH (07:32)
[2021-10-12] MEDS ORDERED: Heparin 15,000 UNIT in 0.9 % Sodium Chloride 500 ML IV ONE (12:00)
[2021-10-12] MEDS: Pantoprazole 40 MG VIAL IVP SCH (12:42)
[2021-10-12] MEDS ORDERED: Furosemide 20 MG/2 ML VIAL IVP SCH (13:00)
[2021-10-12] MEDS: Furosemide 20 MG/2 ML VIAL IVP SCH (15:50)
[2021-10-12] MEDS: Metoprolol XL (24 HR) Succ 25 MG TAB.ER.24H PO SCH (15:50)
[2021-10-13 06:19] LABS: Eosinophils % 0.3 %; Hemoglobin 8.6 g/dL (12.9-16.9); Red Cell Distribution Width 16.7 % (11.5-14.5)
[2021-10-13 06:20] LABS: Basophils % 0.3 %; Hematocrit 27.4 % (37.5-50.1); Immature Granulocytes % 2.1 % (0-4); Immature Platelets 18.7 % (1.1-6.1); Lymphocytes # 0.4 K/mcL (0.6-4.6); Lymphocytes % 3.5 %; Mean Corpuscular HGB Conc 31.4 g/dL (31.6-35.5); Mean Corpuscular Hemoglobin 27.7 pg (28.0-33.3); Mean Corpuscular Volume 88.4 fL (83.0-100.0); Mean Platelet Volume 13.1 fL (9.4-12.4); Monocytes # 0.6 K/mcL (0.0-1.3); Neutrophils # 8.8 K/mcL (1.6-8.9); Segmented Neutrophils % 87.8 %
[2021-10-13 06:21] LABS: Platelet Count 67 K/mcL (140-400)
[2021-10-13 06:25] LABS: BUN/Creatinine Ratio 57 (6-26); Blood Urea Nitrogen 46 mg/dL (8-23); Calcium 8.9 mg/dL (8.6-10.3); Carbon Dioxide 24 mEq/L (23-29); Chloride 105 mEq/L (98-107); Glucose 174 mg/dL (70-105); Osmolality,Calculated 302 (280-300); Potassium 3.7 mEq/L (3.5-5.1); Sodium 138 mEq/L (136-145); eGFR For African Americans > 60 (> 60); eGFR For Non-African Americans > 60 (> 60)
[2021-10-13] MEDS: Insulin LISPRO 300 UNITS/3 ML VIAL SUBQ SCH ×4 (08:15→20:11)
[2021-10-13] MEDS: Aspirin Enteric Coated 81 MG Tablet PO SCH (08:16)
[2021-10-13] MEDS: Furosemide 20 MG/2 ML VIAL IVP SCH ×2 (08:16→20:28)
[2021-10-13] MEDS: Metoprolol XL (24 HR) Succ 25 MG TAB.ER.24H PO SCH (08:16)
[2021-10-13] MEDS: Norepinephrine 4 MG/254 ML IV.SOLN IVC SCH (08:17)
[2021-10-13] MEDS: Artificial Tears SOLN 15 ML BOTTLE LEFT EYE SCH ×4 (08:17→20:12)
[2021-10-13] MEDS: Pantoprazole 40 MG VIAL IVP SCH (20:27)
[2021-10-14 04:15] LABS: Basophils % 0.2 %; Hemoglobin 8.6 g/dL (12.9-16.9); Mean Platelet Volume 13.1 fL (9.4-12.4); Nucleated Red Blood Cells 0.8 /100 WBC (0)
[2021-10-14 04:17] LABS: Eosinophils # 0.1 K/mcL (0.0-0.6); Eosinophils % 0.7 %; Immature Granulocytes % 2.3 % (0-4); Immature Platelets 16.1 % (1.1-6.1); Lymphocytes # 0.5 K/mcL (0.6-4.6); Mean Corpuscular HGB Conc 30.7 g/dL (31.6-35.5); Mean Corpuscular Hemoglobin 27.2 pg (28.0-33.3); Mean Corpuscular Volume 88.6 fL (83.0-100.0); Monocytes # 0.6 K/mcL (0.0-1.3); Monocytes % 5.6 %; Neutrophils # 8.7 K/mcL (1.6-8.9); Red Blood Count 3.16 M/mcL (4.19-5.50); Red Cell Distribution Width 16.8 % (11.5-14.5); Segmented Neutrophils % 86.2 %; White Blood Count 10.1 K/mcL (4.3-11.1)
[2021-10-14 04:20] LABS: Platelet Count 67 K/mcL (140-400)
[2021-10-14 04:39] LABS: BUN/Creatinine Ratio 55 (6-26); Blood Urea Nitrogen 37 mg/dL (8-23); Carbon Dioxide 23 mEq/L (23-29); Chloride 107 mEq/L (98-107); Glucose 141 mg/dL (70-105); Magnesium 2.3 mg/dL (1.6-2.6); Osmolality,Calculated 299 (280-300); Phosphorous 2.2 mg/dL (2.7-4.5); Potassium 3.4 mEq/L (3.5-5.1); Sodium 139 mEq/L (136-145); eGFR For African Americans > 60 (> 60); eGFR For Non-African Americans > 60 (> 60)
[2021-10-14] MEDS ORDERED: Potassium Phosphate 44 MEQ in 0.9 % Sodium Chloride 250 ML IVPB ONE (07:32)
[2021-10-14] MEDS: Insulin LISPRO 300 UNITS/3 ML VIAL SUBQ SCH ×4 (08:25→20:40)
[2021-10-14] MEDS: Aspirin Enteric Coated 81 MG Tablet PO SCH (08:45)
[2021-10-14] MEDS: Metoprolol XL (24 HR) Succ 25 MG TAB.ER.24H PO SCH (08:47)
[2021-10-14] MEDS: Furosemide 20 MG/2 ML VIAL IVP SCH ×2 (08:56→18:06)
[2021-10-14] MEDS: Artificial Tears SOLN 15 ML BOTTLE LEFT EYE SCH ×4 (11:51→20:40)
[2021-10-14] MEDS: Pantoprazole 40 MG VIAL IVP SCH (12:31)
[2021-10-14] MEDS ORDERED: Amiodarone Premix 150 MG/100 ML BAG IVPB ONE (13:55)
[2021-10-14] MEDS ORDERED: Amiodarone Premix 360 MG/200 ML BAG IVC ONE (17:05)
[2021-10-14] MEDS: Amiodarone Premix 360 MG/200 ML BAG IVC SCH (23:10)
[2021-10-15 04:08] LABS: Basophils % 0.1 %; Eosinophils # 0.1 K/mcL (0.0-0.6); Eosinophils % 0.8 %; Hematocrit 29.9 % (37.5-50.1); Hemoglobin 9.2 g/dL (12.9-16.9); Immature Granulocytes % 1.7 % (0-4); Lymphocytes # 0.7 K/mcL (0.6-4.6); Mean Corpuscular HGB Conc 30.8 g/dL (31.6-35.5); Mean Corpuscular Hemoglobin 27.3 pg (28.0-33.3); Mean Corpuscular Volume 88.7 fL (83.0-100.0); Mean Platelet Volume 12.8 fL (9.4-12.4); Monocytes # 0.6 K/mcL (0.0-1.3); Monocytes % 5.2 %; Neutrophils # 9.5 K/mcL (1.6-8.9); Nucleated Red Blood Cells 0.5 /100 WBC (0); Red Blood Count 3.37 M/mcL (4.19-5.50); Segmented Neutrophils % 86.2 %
[2021-10-15 04:09] LABS: Platelet Count 92 K/mcL (140-400)
[2021-10-15 04:26] LABS: BUN/Creatinine Ratio 42 (6-26); Blood Urea Nitrogen 31 mg/dL (8-23); Calcium 8.6 mg/dL (8.6-10.3); Carbon Dioxide 25 mEq/L (23-29); Chloride 105 mEq/L (98-107); Glucose 164 mg/dL (70-105); Magnesium 2.2 mg/dL (1.6-2.6); Osmolality,Calculated 300 (280-300); Potassium 3.5 mEq/L (3.5-5.1); Sodium 140 mEq/L (136-145); eGFR For African Americans > 60 (> 60); eGFR For Non-African Americans > 60 (> 60)
[2021-10-15] MEDS: Insulin LISPRO 300 UNITS/3 ML VIAL SUBQ SCH ×4 (07:39→19:46)
[2021-10-15] MEDS: Furosemide 20 MG/2 ML VIAL IVP SCH ×2 (08:35→17:02)
[2021-10-15] MEDS: Artificial Tears SOLN 15 ML BOTTLE LEFT EYE SCH ×4 (08:35→20:14)
[2021-10-15] MEDS: Aspirin Enteric Coated 81 MG Tablet PO SCH (08:37)
[2021-10-15] MEDS: Metoprolol XL (24 HR) Succ 25 MG TAB.ER.24H PO SCH (08:37)
[2021-10-15] MEDS: Amiodarone Premix 360 MG/200 ML BAG IVC SCH (10:56)
[2021-10-15] MEDS: Pantoprazole 40 MG VIAL IVP SCH (13:10)
[2021-10-15] MEDS: *HR* Amiodarone 200 MG TABLET PO SCH ×2 (15:05→20:14)
[2021-10-15 21:52] LABS: INR 2.5; Prothrombin Time 28.1 Seconds (9.4-12.1)
[2021-10-16 04:39] LABS: Basophils % 0.2 %; Eosinophils # 0.1 K/mcL (0.0-0.6); Eosinophils % 1.1 %; Hematocrit 28.5 % (37.5-50.1); Hemoglobin 9.1 g/dL (12.9-16.9); Immature Granulocytes % 1.5 % (0-4); Lymphocytes # 0.9 K/mcL (0.6-4.6); Lymphocytes % 9.2 %; Mean Corpuscular HGB Conc 31.9 g/dL (31.6-35.5); Mean Corpuscular Hemoglobin 28.1 pg (28.0-33.3); Mean Platelet Volume 12.8 fL (9.4-12.4); Monocytes # 0.6 K/mcL (0.0-1.3); Neutrophils # 7.8 K/mcL (1.6-8.9); Nucleated Red Blood Cells 0.2 /100 WBC (0); Platelet Count 112 K/mcL (140-400); Red Blood Count 3.24 M/mcL (4.19-5.50); Red Cell Distribution Width 16.9 % (11.5-14.5); White Blood Count 9.5 K/mcL (4.3-11.1)
[2021-10-16 04:47] LABS: BUN/Creatinine Ratio 35 (6-26); Blood Urea Nitrogen 27 mg/dL (8-23); Calcium 8.5 mg/dL (8.6-10.3); Carbon Dioxide 27 mEq/L (23-29); Chloride 103 mEq/L (98-107); Glucose 134 mg/dL (70-105); INR 2.5; Magnesium 2.2 mg/dL (1.6-2.6); Osmolality,Calculated 291 (280-300); Phosphorous 3.2 mg/dL (2.7-4.5); Potassium 3.5 mEq/L (3.5-5.1); Prothrombin Time 27.8 Seconds (9.4-12.1); Sodium 137 mEq/L (136-145); eGFR For African Americans > 60 (> 60); eGFR For Non-African Americans > 60 (> 60)
[2021-10-16] MEDS: Insulin LISPRO 300 UNITS/3 ML VIAL SUBQ SCH ×4 (08:07→19:55)
[2021-10-16] MEDS: Furosemide 20 MG/2 ML VIAL IVP SCH ×2 (08:44→16:30)
[2021-10-16] MEDS: Artificial Tears SOLN 15 ML BOTTLE LEFT EYE SCH ×4 (08:45→19:54)
[2021-10-16] MEDS: Aspirin Enteric Coated 81 MG Tablet PO SCH (08:45)
[2021-10-16] MEDS: Metoprolol XL (24 HR) Succ 25 MG TAB.ER.24H PO SCH (08:45)
[2021-10-16] MEDS: *HR* Amiodarone 200 MG TABLET PO SCH (08:45)
[2021-10-16] MEDS ORDERED: Warfarin perPT PO PRN ×2 (18:00)
[2021-10-16] MEDS: Amiodarone Premix 360 MG/200 ML BAG IVC SCH (18:35)
[2021-10-17 04:03] LABS: INR 2.4; Prothrombin Time 26.8 Seconds (9.4-12.1)
[2021-10-17 04:13] LABS: BUN/Creatinine Ratio 31 (6-26); Blood Urea Nitrogen 24 mg/dL (8-23); Calcium 8.4 mg/dL (8.6-10.3); Carbon Dioxide 27 mEq/L (23-29); Chloride 103 mEq/L (98-107); Glucose 149 mg/dL (70-105); Osmolality,Calculated 293 (280-300); Potassium 3.3 mEq/L (3.5-5.1); Sodium 138 mEq/L (136-145); eGFR For African Americans > 60 (> 60); eGFR For Non-African Americans > 60 (> 60)
[2021-10-17] MEDS: Amiodarone Premix 360 MG/200 ML BAG IVC SCH ×2 (05:42→17:52)
[2021-10-17] MEDS: Insulin LISPRO 300 UNITS/3 ML VIAL SUBQ SCH ×4 (09:29→20:00)
[2021-10-17] MEDS: Metoprolol XL (24 HR) Succ 25 MG TAB.ER.24H PO SCH (09:32)
[2021-10-17] MEDS: Furosemide 20 MG/2 ML VIAL IVP SCH (09:32)
[2021-10-17] MEDS: Aspirin Enteric Coated 81 MG Tablet PO SCH (09:32)
[2021-10-17] MEDS: Artificial Tears SOLN 15 ML BOTTLE LEFT EYE SCH ×4 (09:33→19:57)
[2021-10-18 05:00] LABS: INR 2.1; Prothrombin Time 23.8 Seconds (9.4-12.1)
[2021-10-18] MEDS: Amiodarone Premix 360 MG/200 ML BAG IVC SCH ×2 (06:10→18:21)
[2021-10-18] MEDS: Insulin LISPRO 300 UNITS/3 ML VIAL SUBQ SCH ×4 (08:31→20:06)
[2021-10-18] MEDS: Aspirin Enteric Coated 81 MG Tablet PO SCH (08:32)
[2021-10-18] MEDS: Artificial Tears SOLN 15 ML BOTTLE LEFT EYE SCH ×4 (08:32→20:00)
[2021-10-18] MEDS: Metoprolol XL (24 HR) Succ 25 MG TAB.ER.24H PO SCH (08:32)
[2021-10-18] MEDS ORDERED: *HR* Warfarin 2.5 MG TABLET PO ONE (18:00)
[2021-10-18 23:53] VITALS: TEMP 97.6
[2021-10-19 05:34] LABS: INR 2.1
[2021-10-19] MEDS: Amiodarone Premix 360 MG/200 ML BAG IVC SCH (06:39)
[2021-10-19] MEDS: Insulin LISPRO 300 UNITS/3 ML VIAL SUBQ SCH ×2 (08:03→14:09)
[2021-10-19] MEDS: Aspirin Enteric Coated 81 MG Tablet PO SCH (08:57)
[2021-10-19] MEDS: Metoprolol XL (24 HR) Succ 25 MG TAB.ER.24H PO SCH (08:57)
[2021-10-19] MEDS: Artificial Tears SOLN 15 ML BOTTLE LEFT EYE SCH ×2 (08:57→14:09)
[2021-10-19 13:18] LABS: Adenovirus Not Detected (Not Detect); Bordetella Pertussis Not Detected (Not Detect); Chlamydophila pneumoniae Not Detected (Not Detect); Coronavirus 229E Not Detected (Not Detect); Coronavirus HKU1 Not Detected (Not Detect); Coronavirus NL63 Not Detected (Not Detect); Coronavirus OC43 Not Detected (Not Detect); Human Metapneumovirus Not Detected (Not Detect); Human Rhinovirus/Enterovirus Not Detected (Not Detect); Influenza A Subtype 2009 H1 Not Detected (Not Detect); Influenza B Not Detected (Not Detect); Mycoplasma pneumoniae Not Detected (Not Detect); Parainfluenza Virus 1 Not Detected (Not Detect); Parainfluenza Virus 2 Not Detected (Not Detect); Parainfluenza Virus 3 Not Detected (Not Detect); Parainfluenza Virus 4 Not Detected (Not Detect); Respiratory Syncytial Virus Not Detected (Not Detect); SARS-CoV-2 Not Detected (Not Detect)
[2021-10-19 15:24] VITALS: BP 121/72
[2021-10-19 16:50] VITALS: PULSE 75; O2SAT 97
== END 2021-10-19 16:20 | disposition other institution (70) | DRG 233 ==
LOC: INVDIALAB 09:39 → EDUNIT# 11:00 → SUATTDRO 14:30 → 2ANU 14:30 → ICNU 10-02 02:06 → 2NNU 10-04 14:09 → ICNU 10-07 18:15 → 2NNU 10-09 18:22
PROVIDERS: ADMIT Student in an Organized Health Care Education/Training Program; ATTEND Internal Medicine

== ENCOUNTER 2021-11-22 12:07 | Inpatient (IN) ==
[2021-11-22] MEDS ORDERED: Naloxone 0.4 MG/ML INJ IVP PRN (14:22)
[2021-11-22 14:54] LABS: Hematocrit 38.3 % (37.5-50.1); Hemoglobin 12.3 g/dL (12.9-16.9); Lymphocytes # 0.2 K/mcL (0.6-4.6); Mean Corpuscular HGB Conc 32.1 g/dL (31.6-35.5); Mean Corpuscular Hemoglobin 27.3 pg (28.0-33.3); Mean Corpuscular Volume 84.9 fL (83.0-100.0); Mean Platelet Volume 11.8 fL (9.4-12.4); Platelet Count 118 K/mcL (140-400); Red Blood Count 4.51 M/mcL (4.19-5.50); Red Cell Distribution Width 18.2 % (11.5-14.5); White Blood Count 9.8 K/mcL (4.3-11.1)
[2021-11-22] MEDS ORDERED: Dextrose 4 GM Chewable Tablets PO PRN ×2 (14:57)
[2021-11-22] MEDS ORDERED: D5% in Water 1,000 ML IVC PRN (14:57)
[2021-11-22] MEDS ORDERED: *HR* Dextrose 50 % in Water (Syg) 50 ML SYRINGE IVP PRN (14:57)
[2021-11-22] MEDS ORDERED: Amiodarone Premix 150 MG/100 ML BAG IVPB ONE (15:11)
[2021-11-22] MEDS ORDERED: 0.9 % Sodium Chloride 1,000 ML IVC SCH ×2 (15:15→15:30)
[2021-11-22] MEDS ORDERED: Heparin 25,000UNIT/250ML 1/2NS 25,000 UNIT/250 ML IV.SOLN IVC SCH ×2 (15:15→21:00)
[2021-11-22 15:18] LABS: Alanine Aminotransferase 22 Units/L (7-52); Albumin 3.4 g/dL (3.5-5.7); Albumin/Globulin Ratio 1.5 (1.1-2.2); Alkaline Phosphatase 107 Units/L (34-104); Aspartate Amino Transferase 23 Units/L (13-39); BUN/Creatinine Ratio 17 (6-26); Bilirubin,Total 0.8 mg/dL (0.3-1.0); Blood Urea Nitrogen 11 mg/dL (8-23); Calcium 8.2 mg/dL (8.6-10.3); Carbon Dioxide 23 mEq/L (23-29); Chloride 101 mEq/L (98-107); Globulin 2.3 g/dL (2.4-3.5); Glucose 167 mg/dL (70-105); Magnesium 1.2 mg/dL (1.6-2.6); Osmolality,Calculated 285 (280-300); Phosphorous 2.6 mg/dL (2.7-4.5); Potassium 3.3 mEq/L (3.5-5.1); Sodium 136 mEq/L (136-145); Total Protein 5.7 g/dL (6.4-8.9); eGFR For African Americans > 60 (> 60); eGFR For Non-African Americans > 60 (> 60)
[2021-11-22] MEDS ORDERED: Ondansetron 4 MG/2 ML VIAL IVP PRN (15:37)
[2021-11-22] MEDS ORDERED: *HR* Heparin 5,000 UNIT/ML VIAL IVP PRN ×4 (16:12→21:00)
[2021-11-22 16:13] LABS: Monocytes # 0.2 K/mcL (0.0-1.3); Neutrophils # 9.4 K/mcL (1.6-8.9); Platelet Estimate Slight Decrease (Normal)
[2021-11-22 16:32] LABS: INR 1.7; Prothrombin Time 19.2 Seconds (9.4-12.1)
[2021-11-22 16:34] LABS: Activated Partial Thrombo Time 32.6 Seconds (26.0-36.0)
[2021-11-22 16:41] LABS: Heparin anti-factor XA UFH 1.06 IU/mL (0.30-0.70)
[2021-11-22] MEDS: Heparin 25,000UNIT/250ML 1/2NS 25,000 UNIT/250 ML IV.SOLN IVC SCH (18:42)
[2021-11-22] MEDS: Insulin LISPRO 300 UNITS/3 ML VIAL SUBQ SCH (20:05)
[2021-11-22] MEDS: Piperacillin/Tazobactam 3.375 GM in 0.9 % Sodium Chloride Mini Bag 100 ML IVPB SCH (20:10)
[2021-11-22] MEDS: *HR* Amiodarone 200 MG TABLET PO SCH (23:40)
[2021-11-23] MEDS: Piperacillin/Tazobactam 3.375 GM in 0.9 % Sodium Chloride Mini Bag 100 ML IVPB SCH ×4 (00:30→23:56)
[2021-11-23 01:03] LABS: Hematocrit 35.2 % (37.5-50.1); Hemoglobin 11.2 g/dL (12.9-16.9); Mean Corpuscular HGB Conc 31.8 g/dL (31.6-35.5); Mean Corpuscular Hemoglobin 26.8 pg (28.0-33.3); Mean Corpuscular Volume 84.2 fL (83.0-100.0); Mean Platelet Volume 11.9 fL (9.4-12.4); Platelet Count 103 K/mcL (140-400); Red Blood Count 4.18 M/mcL (4.19-5.50); Red Cell Distribution Width 18.5 % (11.5-14.5); White Blood Count 11.2 K/mcL (4.3-11.1)
[2021-11-23 01:21] LABS: Alanine Aminotransferase 21 Units/L (7-52); Albumin 2.9 g/dL (3.5-5.7); Albumin/Globulin Ratio 1.1 (1.1-2.2); Alkaline Phosphatase 97 Units/L (34-104); Aspartate Amino Transferase 23 Units/L (13-39); BUN/Creatinine Ratio 20 (6-26); Blood Urea Nitrogen 13 mg/dL (8-23); Calcium 8.2 mg/dL (8.6-10.3); Carbon Dioxide 24 mEq/L (23-29); Chloride 103 mEq/L (98-107); Globulin 2.6 g/dL (2.4-3.5); Glucose 156 mg/dL (70-105); Osmolality,Calculated 283 (280-300); Sodium 135 mEq/L (136-145); Total Protein 5.5 g/dL (6.4-8.9); eGFR For African Americans > 60 (> 60); eGFR For Non-African Americans > 60 (> 60)
[2021-11-23 01:40] LABS: INR 2.6
[2021-11-23 01:42] LABS: Activated Partial Thrombo Time 254.6 Seconds (26.0-36.0); Heparin anti-factor XA UFH > 2.00 IU/mL (0.30-0.70)
[2021-11-23] MEDS: Insulin LISPRO 300 UNITS/3 ML VIAL SUBQ SCH ×5 (02:29→20:41)
[2021-11-23] MEDS ORDERED: Potassium Phosphate 44 MEQ in 0.9 % Sodium Chloride 250 ML IVPB ONE (06:21)
[2021-11-23] MEDS: *HR* Amiodarone 200 MG TABLET PO SCH ×2 (07:44→20:42)
[2021-11-23] MEDS ORDERED: Aspirin 81 MG TAB.CHEW PO SCH (09:00)
[2021-11-23] MEDS ORDERED: Perflutren Lipid Microsphere 1.3 ML in 0.9 % Sodium Chloride 8.7 ML IVP PRN (09:09)
[2021-11-23] MEDS: Metoprolol XL (24 HR) Succ 50 MG TAB.ER.24H PO SCH (10:41)
[2021-11-23] MEDS ORDERED: POVIDONE OP PRN (11:53)
[2021-11-23] MEDS ORDERED: MELATONIN 3 MG PO PRN (11:53)
[2021-11-23] MEDS ORDERED: Bisacodyl 10 MG RECTAL SUPPOSITORY RC PRN (11:53)
[2021-11-23] MEDS ORDERED: polyethylene glycoL 3350 17 GM POWD.PACK PO PRN (11:53)
[2021-11-23] MEDS ORDERED: Sennosides/Docusate Sodium TABLET PO PRN (11:53)
[2021-11-23 18:46] LABS: INR 2.7; Prothrombin Time 29.9 Seconds (9.4-12.1)
[2021-11-23 18:48] LABS: Activated Partial Thrombo Time 37.9 Seconds (26.0-36.0)
[2021-11-23] MEDS ORDERED: Ketorolac 30 MG/ML VIAL IM PRN (19:00)
[2021-11-23] MEDS: Melatonin 3 MG TABLET PO PRN (20:42)
[2021-11-23] MEDS ORDERED: NON-FORMULARY MEDICATION 1 EACH EACH (Atorvastatin Calcium [Lipitor] 80 MG Tablet) PO SCH (21:00)
[2021-11-24 05:09] LABS: Basophils % 0.1 %; Hematocrit 33.2 % (37.5-50.1); Hemoglobin 10.5 g/dL (12.9-16.9); Immature Granulocytes % 12.3 % (0-4); Lymphocytes # 0.3 K/mcL (0.6-4.6); Mean Corpuscular HGB Conc 31.6 g/dL (31.6-35.5); Mean Corpuscular Hemoglobin 26.6 pg (28.0-33.3); Mean Corpuscular Volume 84.3 fL (83.0-100.0); Mean Platelet Volume 11.8 fL (9.4-12.4); Monocytes # 0.4 K/mcL (0.0-1.3); Monocytes % 4.1 %; Platelet Count 115 K/mcL (140-400); Red Blood Count 3.94 M/mcL (4.19-5.50); Red Cell Distribution Width 18.6 % (11.5-14.5); Segmented Neutrophils % 80.5 %; White Blood Count 8.7 K/mcL (4.3-11.1)
[2021-11-24 05:25] LABS: BUN/Creatinine Ratio 32 (6-26); Blood Urea Nitrogen 20 mg/dL (8-23); Calcium 8.5 mg/dL (8.6-10.3); Carbon Dioxide 27 mEq/L (23-29); Chloride 105 mEq/L (98-107); Glucose 120 mg/dL (70-105); Magnesium 1.8 mg/dL (1.6-2.6); Osmolality,Calculated 292 (280-300); Phosphorous 2.2 mg/dL (2.7-4.5); Potassium 3.7 mEq/L (3.5-5.1); Sodium 139 mEq/L (136-145); eGFR For African Americans > 60 (> 60); eGFR For Non-African Americans > 60 (> 60)
[2021-11-24 05:41] LABS: INR 2.4; Prothrombin Time 26.9 Seconds (9.4-12.1)
[2021-11-24 05:52] LABS: Platelet Estimate Slight Decrease (Normal); Toxic Granulation Present (Not Present)
[2021-11-24] MEDS ORDERED: Potassium Phosphate 44 MEQ in 0.9 % Sodium Chloride 250 ML IVPB ONE (07:33)
[2021-11-24] MEDS ORDERED: Morphine Sulfate 2 MG/ML SYRINGE IVP ONE (08:24)
[2021-11-24] MEDS: Insulin LISPRO 300 UNITS/3 ML VIAL SUBQ SCH ×4 (10:03→20:26)
[2021-11-24] MEDS: Piperacillin/Tazobactam 3.375 GM in 0.9 % Sodium Chloride Mini Bag 100 ML IVPB SCH ×2 (10:10→16:51)
[2021-11-24] MEDS: Cholecalciferol (D-3) 1,000 UNIT (25MCG) TABLET PO SCH (10:11)
[2021-11-24] MEDS: Aspirin Enteric Coated 81 MG Tablet PO SCH (10:11)
[2021-11-24] MEDS: *HR* Amiodarone 200 MG TABLET PO SCH ×2 (10:12→21:19)
[2021-11-24] MEDS: Metoprolol XL (24 HR) Succ 50 MG TAB.ER.24H PO SCH (10:12)
[2021-11-24] MEDS: Multivit/Ca/Min/Fe/FA 1 TAB TABLET PO SCH (10:12)
[2021-11-24] MEDS ORDERED: *HR* Phytonadione 5 MG TABLET PO ONE (19:09)
[2021-11-25] MEDS: Piperacillin/Tazobactam 3.375 GM in 0.9 % Sodium Chloride Mini Bag 100 ML IVPB SCH ×4 (01:03→23:21)
[2021-11-25 02:42] LABS: Basophils % 0.1 %; Eosinophils % 0.1 %; Hematocrit 33.6 % (37.5-50.1); Hemoglobin 10.7 g/dL (12.9-16.9); Immature Granulocytes % 8.1 % (0-4); Lymphocytes # 0.5 K/mcL (0.6-4.6); Lymphocytes % 6.4 %; Mean Corpuscular HGB Conc 31.8 g/dL (31.6-35.5); Mean Corpuscular Hemoglobin 26.9 pg (28.0-33.3); Mean Corpuscular Volume 84.4 fL (83.0-100.0); Mean Platelet Volume 11.9 fL (9.4-12.4); Monocytes # 0.4 K/mcL (0.0-1.3); Monocytes % 5.4 %; Platelet Count 138 K/mcL (140-400); Red Blood Count 3.98 M/mcL (4.19-5.50); Red Cell Distribution Width 19.1 % (11.5-14.5); Segmented Neutrophils % 79.9 %; White Blood Count 7.5 K/mcL (4.3-11.1)
[2021-11-25 02:48] LABS: INR 1.8; Prothrombin Time 19.6 Seconds (9.4-12.1)
[2021-11-25 03:03] LABS: BUN/Creatinine Ratio 33 (6-26); Blood Urea Nitrogen 21 mg/dL (8-23); Calcium 8.8 mg/dL (8.6-10.3); Carbon Dioxide 24 mEq/L (23-29); Chloride 103 mEq/L (98-107); Glucose 101 mg/dL (70-105); Magnesium 1.9 mg/dL (1.6-2.6); Osmolality,Calculated 283 (280-300); Phosphorous 2.3 mg/dL (2.7-4.5); Potassium 3.8 mEq/L (3.5-5.1); Sodium 135 mEq/L (136-145); eGFR For African Americans > 60 (> 60); eGFR For Non-African Americans > 60 (> 60)
[2021-11-25 03:04] LABS: Burr Cells 1+ (Not Present); Platelet Estimate Normal (Normal); Poikilocytosis 1+ (Not Present)
[2021-11-25] MEDS: Heparin 25,000UNIT/250ML 1/2NS 25,000 UNIT/250 ML IV.SOLN IVC SCH ×4 (09:51→09:56)
[2021-11-25] MEDS: Insulin LISPRO 300 UNITS/3 ML VIAL SUBQ SCH ×4 (09:52→19:34)
[2021-11-25] MEDS: *HR* Amiodarone 200 MG TABLET PO SCH ×2 (09:55→19:35)
[2021-11-25] MEDS: Aspirin Enteric Coated 81 MG Tablet PO SCH ×2 (09:55→13:53)
[2021-11-25] MEDS: Multivit/Ca/Min/Fe/FA 1 TAB TABLET PO SCH ×2 (09:56→13:53)
[2021-11-25] MEDS: Metoprolol XL (24 HR) Succ 50 MG TAB.ER.24H PO SCH ×2 (09:56→13:53)
[2021-11-25] MEDS: Cholecalciferol (D-3) 1,000 UNIT (25MCG) TABLET PO SCH ×2 (09:56→13:52)
[2021-11-25] MEDS: Apixaban 5 MG TABLET PO SCH (19:35)
[2021-11-26 03:49] LABS: Basophils % 0.2 %; Eosinophils % 0.2 %; Hematocrit 26.9 % (37.5-50.1); Immature Granulocytes % 0.4 % (0-4); Lymphocytes # 0.3 K/mcL (0.6-4.6); Lymphocytes % 6.9 %; Mean Corpuscular Hemoglobin 26.9 pg (28.0-33.3); Mean Corpuscular Volume 84.1 fL (83.0-100.0); Mean Platelet Volume 11.5 fL (9.4-12.4); Monocytes # 0.3 K/mcL (0.0-1.3); Monocytes % 5.7 %; Neutrophils # 4.1 K/mcL (1.6-8.9); Platelet Count 118 K/mcL (140-400); Red Cell Distribution Width 18.8 % (11.5-14.5); Segmented Neutrophils % 86.6 %; White Blood Count 4.8 K/mcL (4.3-11.1)
[2021-11-26 03:50] LABS: Hemoglobin 8.6 g/dL (12.9-16.9)
[2021-11-26 04:01] LABS: Alanine Aminotransferase 34 Units/L (7-52); Albumin 2.5 g/dL (3.5-5.7); Albumin/Globulin Ratio 0.9 (1.1-2.2); Alkaline Phosphatase 102 Units/L (34-104); Aspartate Amino Transferase 53 Units/L (13-39); BUN/Creatinine Ratio 34 (6-26); Bilirubin,Total 0.9 mg/dL (0.3-1.0); Blood Urea Nitrogen 18 mg/dL (8-23); Calcium 8.3 mg/dL (8.6-10.3); Carbon Dioxide 26 mEq/L (23-29); Chloride 103 mEq/L (98-107); Globulin 2.7 g/dL (2.4-3.5); Glucose 96 mg/dL (70-105); Osmolality,Calculated 282 (280-300); Potassium 3.2 mEq/L (3.5-5.1); Sodium 135 mEq/L (136-145); Total Protein 5.2 g/dL (6.4-8.9); eGFR For African Americans > 60 (> 60); eGFR For Non-African Americans > 60 (> 60)
[2021-11-26] MEDS: Insulin LISPRO 300 UNITS/3 ML VIAL SUBQ SCH ×4 (07:44→20:49)
[2021-11-26] MEDS: Metoprolol XL (24 HR) Succ 50 MG TAB.ER.24H PO SCH (07:45)
[2021-11-26] MEDS: Cholecalciferol (D-3) 1,000 UNIT (25MCG) TABLET PO SCH (07:45)
[2021-11-26] MEDS: Aspirin Enteric Coated 81 MG Tablet PO SCH (07:45)
[2021-11-26] MEDS: Apixaban 5 MG TABLET PO SCH ×2 (07:45→20:06)
[2021-11-26] MEDS: Multivit/Ca/Min/Fe/FA 1 TAB TABLET PO SCH (07:45)
[2021-11-26] MEDS: Piperacillin/Tazobactam 3.375 GM in 0.9 % Sodium Chloride Mini Bag 100 ML IVPB SCH ×2 (07:46→16:37)
[2021-11-26] MEDS: *HR* Amiodarone 200 MG TABLET PO SCH ×2 (07:46→20:06)
[2021-11-26] MEDS ORDERED: Potassium Chloride Elixir 20 MEQ/15 ML UDC PO ONE (08:30)
[2021-11-26 14:55] LABS: Hematocrit 29.3 % (37.5-50.1)
[2021-11-26] MEDS: Melatonin 3 MG TABLET PO PRN (20:40)
[2021-11-27] MEDS: Piperacillin/Tazobactam 3.375 GM in 0.9 % Sodium Chloride Mini Bag 100 ML IVPB SCH ×3 (00:14→16:44)
[2021-11-27 04:42] LABS: Hematocrit 27.9 % (37.5-50.1); Hemoglobin 8.6 g/dL (12.9-16.9); Mean Corpuscular HGB Conc 30.8 g/dL (31.6-35.5); Mean Corpuscular Hemoglobin 26.5 pg (28.0-33.3); Mean Corpuscular Volume 85.8 fL (83.0-100.0); Mean Platelet Volume 11.6 fL (9.4-12.4); Platelet Count 121 K/mcL (140-400); Red Blood Count 3.25 M/mcL (4.19-5.50); White Blood Count 3.7 K/mcL (4.3-11.1)
[2021-11-27 05:19] LABS: BUN/Creatinine Ratio 21 (6-26); Blood Urea Nitrogen 13 mg/dL (8-23); Calcium 8.2 mg/dL (8.6-10.3); Carbon Dioxide 24 mEq/L (23-29); Chloride 102 mEq/L (98-107); Glucose 109 mg/dL (70-105); Osmolality,Calculated 277 (280-300); Potassium 4.1 mEq/L (3.5-5.1); Sodium 133 mEq/L (136-145); eGFR For African Americans > 60 (> 60); eGFR For Non-African Americans > 60 (> 60)
[2021-11-27] MEDS: Insulin LISPRO 300 UNITS/3 ML VIAL SUBQ SCH ×4 (07:41→21:05)
[2021-11-27] MEDS: Metoprolol XL (24 HR) Succ 50 MG TAB.ER.24H PO SCH (08:00)
[2021-11-27] MEDS: Multivit/Ca/Min/Fe/FA 1 TAB TABLET PO SCH (08:34)
[2021-11-27] MEDS: *HR* Amiodarone 200 MG TABLET PO SCH ×2 (08:34→21:05)
[2021-11-27] MEDS: Aspirin Enteric Coated 81 MG Tablet PO SCH (08:34)
[2021-11-27] MEDS: Apixaban 5 MG TABLET PO SCH ×2 (08:34→21:05)
[2021-11-27] MEDS: Cholecalciferol (D-3) 1,000 UNIT (25MCG) TABLET PO SCH (08:34)
[2021-11-28 05:58] LABS: Alanine Aminotransferase 46 Units/L (7-52); Albumin 2.7 g/dL (3.5-5.7); Alkaline Phosphatase 108 Units/L (34-104); Aspartate Amino Transferase 65 Units/L (13-39); BUN/Creatinine Ratio 25 (6-26); Bilirubin,Total 0.8 mg/dL (0.3-1.0); Blood Urea Nitrogen 14 mg/dL (8-23); Calcium 8.6 mg/dL (8.6-10.3); Carbon Dioxide 20 mEq/L (23-29); Chloride 105 mEq/L (98-107); Globulin 2.7 g/dL (2.4-3.5); Potassium 4.7 mEq/L (3.5-5.1); Sodium 136 mEq/L (136-145); Total Protein 5.4 g/dL (6.4-8.9); eGFR For African Americans > 60 (> 60); eGFR For Non-African Americans > 60 (> 60)
[2021-11-28 05:59] LABS: Basophils % 0.2 %; Eosinophils # 0.1 K/mcL (0.0-0.6); Eosinophils % 1.1 %; Hematocrit 29.7 % (37.5-50.1); Hemoglobin 9.7 g/dL (12.9-16.9); Immature Granulocytes % 2.1 % (0-4); Lymphocytes # 0.9 K/mcL (0.6-4.6); Lymphocytes % 17.7 %; Mean Corpuscular HGB Conc 32.7 g/dL (31.6-35.5); Mean Corpuscular Hemoglobin 26.8 pg (28.0-33.3); Mean Platelet Volume 12.1 fL (9.4-12.4); Monocytes # 0.3 K/mcL (0.0-1.3); Neutrophils # 3.9 K/mcL (1.6-8.9); Nucleated Red Blood Cells 0.4 /100 WBC (0); Platelet Count 127 K/mcL (140-400); Red Blood Count 3.62 M/mcL (4.19-5.50); Red Cell Distribution Width 19.2 % (11.5-14.5); Segmented Neutrophils % 72.9 %; White Blood Count 5.3 K/mcL (4.3-11.1)
[2021-11-28] MEDS: Insulin LISPRO 300 UNITS/3 ML VIAL SUBQ SCH ×4 (07:19→21:15)
[2021-11-28] MEDS: Cholecalciferol (D-3) 1,000 UNIT (25MCG) TABLET PO SCH (07:52)
[2021-11-28] MEDS: Apixaban 5 MG TABLET PO SCH ×2 (07:52→21:14)
[2021-11-28] MEDS: Metoprolol XL (24 HR) Succ 50 MG TAB.ER.24H PO SCH (07:52)
[2021-11-28] MEDS: Multivit/Ca/Min/Fe/FA 1 TAB TABLET PO SCH (07:52)
[2021-11-28] MEDS: Aspirin Enteric Coated 81 MG Tablet PO SCH (07:52)
[2021-11-28] MEDS: *HR* Amiodarone 200 MG TABLET PO SCH ×2 (07:52→21:15)
[2021-11-28 08:35] LABS: Glucose 84 mg/dL (70-105); Osmolality,Calculated 282 (280-300)
[2021-11-28 10:44] LABS: Bilirubin,Urine Negative (Negative); Blood,Urine Negative (Negative); Clarity,Urine Turbid (Clear); Color,Urine Yellow (Yellow); Glucose,Urine (UA) Normal (Normal); Ketones,Urine 10 mg/dL (Negative); Leukocyte Esterase,Urine Trace (Negative); Mucus,Urine Few per lpf (None-Few); Nitrite,Urine Negative (Negative); Protein,Urine 70 mg/dL (Neg-Trace); RBC,Urine 0-3 per hpf (0-3); Specific Gravity,Urine 1.027 (1.010-1.025); Urobilinogen,Urine Normal (Normal)
[2021-11-28] MEDS ORDERED: Artificial Tears SOLN 15 ML BOTTLE LEFT EYE PRN (14:34)
[2021-11-29 05:59] LABS: Hemoglobin 9.8 g/dL (12.9-16.9); Mean Corpuscular HGB Conc 31.6 g/dL (31.6-35.5); Mean Corpuscular Hemoglobin 26.6 pg (28.0-33.3); Mean Corpuscular Volume 84.2 fL (83.0-100.0); Mean Platelet Volume 11.7 fL (9.4-12.4); Platelet Count 145 K/mcL (140-400); Red Blood Count 3.68 M/mcL (4.19-5.50); Red Cell Distribution Width 19.3 % (11.5-14.5); White Blood Count 6.1 K/mcL (4.3-11.1)
[2021-11-29 06:29] LABS: Alanine Aminotransferase 38 Units/L (7-52); Albumin 2.7 g/dL (3.5-5.7); Alkaline Phosphatase 103 Units/L (34-104); Aspartate Amino Transferase 49 Units/L (13-39); BUN/Creatinine Ratio 22 (6-26); Bilirubin,Total 0.7 mg/dL (0.3-1.0); Blood Urea Nitrogen 12 mg/dL (8-23); Calcium 8.8 mg/dL (8.6-10.3); Carbon Dioxide 21 mEq/L (23-29); Chloride 108 mEq/L (98-107); Globulin 2.7 g/dL (2.4-3.5); Glucose 95 mg/dL (70-105); Osmolality,Calculated 290 (280-300); Potassium 4.5 mEq/L (3.5-5.1); Sodium 140 mEq/L (136-145); Total Protein 5.4 g/dL (6.4-8.9); eGFR For African Americans > 60 (> 60); eGFR For Non-African Americans > 60 (> 60)
[2021-11-29] MEDS: Insulin LISPRO 300 UNITS/3 ML VIAL SUBQ SCH ×4 (07:57→21:57)
[2021-11-29] MEDS: Metoprolol XL (24 HR) Succ 50 MG TAB.ER.24H PO SCH (09:17)
[2021-11-29] MEDS: Multivit/Ca/Min/Fe/FA 1 TAB TABLET PO SCH (09:17)
[2021-11-29] MEDS: Aspirin Enteric Coated 81 MG Tablet PO SCH (09:17)
[2021-11-29] MEDS: Cholecalciferol (D-3) 1,000 UNIT (25MCG) TABLET PO SCH (09:17)
[2021-11-29] MEDS: *HR* Amiodarone 200 MG TABLET PO SCH ×2 (09:17→20:43)
[2021-11-29] MEDS: Apixaban 5 MG TABLET PO SCH ×2 (09:17→20:44)
[2021-11-30] MEDS: Insulin LISPRO 300 UNITS/3 ML VIAL SUBQ SCH ×4 (07:58→20:37)
[2021-11-30] MEDS: *HR* Amiodarone 200 MG TABLET PO SCH (09:06)
[2021-11-30] MEDS: Multivit/Ca/Min/Fe/FA 1 TAB TABLET PO SCH (09:06)
[2021-11-30] MEDS: Apixaban 5 MG TABLET PO SCH ×2 (09:06→22:04)
[2021-11-30] MEDS: Aspirin Enteric Coated 81 MG Tablet PO SCH (09:06)
[2021-11-30] MEDS: Cholecalciferol (D-3) 1,000 UNIT (25MCG) TABLET PO SCH (09:06)
[2021-11-30] MEDS: Metoprolol XL (24 HR) Succ 50 MG TAB.ER.24H PO SCH (09:07)
[2021-12-01] MEDS: *HR* Amiodarone 200 MG TABLET PO SCH ×3 (00:05→20:09)
[2021-12-01] MEDS: Insulin LISPRO 300 UNITS/3 ML VIAL SUBQ SCH ×4 (08:59→20:03)
[2021-12-01] MEDS: Metoprolol XL (24 HR) Succ 50 MG TAB.ER.24H PO SCH (09:00)
[2021-12-01] MEDS: Cholecalciferol (D-3) 1,000 UNIT (25MCG) TABLET PO SCH (09:00)
[2021-12-01] MEDS: Apixaban 5 MG TABLET PO SCH ×2 (09:00→20:09)
[2021-12-01] MEDS: Aspirin Enteric Coated 81 MG Tablet PO SCH (09:01)
[2021-12-01] MEDS: Multivit/Ca/Min/Fe/FA 1 TAB TABLET PO SCH (09:01)
[2021-12-02 07:58] LABS: BUN/Creatinine Ratio 18 (6-26); Blood Urea Nitrogen 11 mg/dL (8-23); Calcium 8.9 mg/dL (8.6-10.3); Carbon Dioxide 27 mEq/L (23-29); Chloride 104 mEq/L (98-107); Glucose 105 mg/dL (70-105); Osmolality,Calculated 286 (280-300); Potassium 4.3 mEq/L (3.5-5.1); Sodium 138 mEq/L (136-145); eGFR For African Americans > 60 (> 60); eGFR For Non-African Americans > 60 (> 60)
[2021-12-02] MEDS: Insulin LISPRO 300 UNITS/3 ML VIAL SUBQ SCH ×4 (08:44→20:20)
[2021-12-02] MEDS: Cholecalciferol (D-3) 1,000 UNIT (25MCG) TABLET PO SCH (08:49)
[2021-12-02] MEDS: Apixaban 5 MG TABLET PO SCH ×2 (08:50→20:20)
[2021-12-02] MEDS: Multivit/Ca/Min/Fe/FA 1 TAB TABLET PO SCH (08:50)
[2021-12-02] MEDS: Aspirin Enteric Coated 81 MG Tablet PO SCH (08:50)
[2021-12-02] MEDS: *HR* Amiodarone 200 MG TABLET PO SCH ×2 (08:51→20:20)
[2021-12-02] MEDS: Metoprolol XL (24 HR) Succ 50 MG TAB.ER.24H PO SCH (08:53)
[2021-12-02 11:51] LABS: Hematocrit 28.5 % (37.5-50.1); Hemoglobin 8.7 g/dL (12.9-16.9); Mean Corpuscular HGB Conc 30.5 g/dL (31.6-35.5); Mean Corpuscular Hemoglobin 25.9 pg (28.0-33.3); Mean Corpuscular Volume 84.8 fL (83.0-100.0); Mean Platelet Volume 10.9 fL (9.4-12.4); Platelet Count 194 K/mcL (140-400); Red Blood Count 3.36 M/mcL (4.19-5.50); Red Cell Distribution Width 19.1 % (11.5-14.5); White Blood Count 5.4 K/mcL (4.3-11.1)
[2021-12-03] MEDS: Insulin LISPRO 300 UNITS/3 ML VIAL SUBQ SCH ×4 (07:59→20:47)
[2021-12-03] MEDS: *HR* Amiodarone 200 MG TABLET PO SCH ×2 (09:16→21:22)
[2021-12-03] MEDS: Aspirin Enteric Coated 81 MG Tablet PO SCH (09:16)
[2021-12-03] MEDS: Apixaban 5 MG TABLET PO SCH ×2 (09:16→21:22)
[2021-12-03] MEDS: Multivit/Ca/Min/Fe/FA 1 TAB TABLET PO SCH (09:16)
[2021-12-03] MEDS: Metoprolol XL (24 HR) Succ 50 MG TAB.ER.24H PO SCH (09:16)
[2021-12-03] MEDS: Cholecalciferol (D-3) 1,000 UNIT (25MCG) TABLET PO SCH (09:16)
[2021-12-03] MEDS: Melatonin 3 MG TABLET PO PRN (21:22)
[2021-12-04 06:00] LABS: Hematocrit 31.3 % (37.5-50.1); Hemoglobin 9.3 g/dL (12.9-16.9); Mean Corpuscular HGB Conc 29.7 g/dL (31.6-35.5); Mean Corpuscular Hemoglobin 26.2 pg (28.0-33.3); Mean Corpuscular Volume 88.2 fL (83.0-100.0); Mean Platelet Volume 11.7 fL (9.4-12.4); Platelet Count 123 K/mcL (140-400); Red Blood Count 3.55 M/mcL (4.19-5.50); Red Cell Distribution Width 19.1 % (11.5-14.5); White Blood Count 6.8 K/mcL (4.3-11.1)
[2021-12-04 06:09] LABS: BUN/Creatinine Ratio 24 (6-26); Blood Urea Nitrogen 14 mg/dL (8-23); Calcium 8.4 mg/dL (8.6-10.3); Carbon Dioxide 23 mEq/L (23-29); Chloride 105 mEq/L (98-107); Glucose 91 mg/dL (70-105); Osmolality,Calculated 280 (280-300); Potassium 4.8 mEq/L (3.5-5.1); Sodium 135 mEq/L (136-145); eGFR For African Americans > 60 (> 60); eGFR For Non-African Americans > 60 (> 60)
[2021-12-04] MEDS: Metoprolol XL (24 HR) Succ 50 MG TAB.ER.24H PO SCH (07:49)
[2021-12-04] MEDS: Insulin LISPRO 300 UNITS/3 ML VIAL SUBQ SCH ×4 (08:19→20:50)
[2021-12-04] MEDS: Aspirin Enteric Coated 81 MG Tablet PO SCH (09:03)
[2021-12-04] MEDS: Apixaban 5 MG TABLET PO SCH ×2 (09:03→20:30)
[2021-12-04] MEDS: Multivit/Ca/Min/Fe/FA 1 TAB TABLET PO SCH (09:03)
[2021-12-04] MEDS: *HR* Amiodarone 200 MG TABLET PO SCH ×2 (09:03→20:31)
[2021-12-04] MEDS: Cholecalciferol (D-3) 1,000 UNIT (25MCG) TABLET PO SCH (09:03)
[2021-12-04] MEDS: Melatonin 3 MG TABLET PO PRN (20:31)
[2021-12-05] MEDS: Insulin LISPRO 300 UNITS/3 ML VIAL SUBQ SCH ×2 (08:11→13:02)
[2021-12-05] MEDS: Multivit/Ca/Min/Fe/FA 1 TAB TABLET PO SCH (08:25)
[2021-12-05] MEDS: Aspirin Enteric Coated 81 MG Tablet PO SCH (08:25)
[2021-12-05] MEDS: Apixaban 5 MG TABLET PO SCH (08:25)
[2021-12-05] MEDS: Cholecalciferol (D-3) 1,000 UNIT (25MCG) TABLET PO SCH (08:25)
[2021-12-05] MEDS: *HR* Amiodarone 200 MG TABLET PO SCH (08:41)
[2021-12-05] MEDS ORDERED: Metoprolol XL (24 HR) Succ 25 MG TAB.ER.24H PO SCH (09:00)
[2021-12-05 11:45] VITALS: BP 94/66; PULSE 78; TEMP 97.4; O2SAT 94
[2021-12-05 14:47] LABS: Adenovirus Not Detected (Not Detect); Bordetella Pertussis Not Detected (Not Detect); Chlamydophila pneumoniae Not Detected (Not Detect); Coronavirus 229E Not Detected (Not Detect); Coronavirus HKU1 Not Detected (Not Detect); Coronavirus NL63 Not Detected (Not Detect); Coronavirus OC43 Not Detected (Not Detect); Human Metapneumovirus Not Detected (Not Detect); Human Rhinovirus/Enterovirus Not Detected (Not Detect); Influenza A Subtype 2009 H1 Not Detected (Not Detect); Influenza B Not Detected (Not Detect); Mycoplasma pneumoniae Not Detected (Not Detect); Parainfluenza Virus 1 Not Detected (Not Detect); Parainfluenza Virus 2 Not Detected (Not Detect); Parainfluenza Virus 3 Not Detected (Not Detect); Parainfluenza Virus 4 Not Detected (Not Detect); Respiratory Syncytial Virus Not Detected (Not Detect); SARS-CoV-2 Not Detected (Not Detect)
== END 2021-12-05 15:45 | DRG 444 ==
LOC: 3ANU → SUATTDRO 14:22 → 2NNU 20:53 → 3ANU 11-26 13:25
PROVIDERS: ADMIT Internal Medicine; ATTEND Family Medicine
PROC: IRDRAIN (~2021-11-22)

== ENCOUNTER 2022-01-14 13:21 | Inpatient (IN) ==
[2022-01-14] MEDS ORDERED: *HR* OxyCODONE Immed Rel 5 MG TABLET PO PRN (14:50)
[2022-01-14] MEDS ORDERED: Ondansetron 4 MG/2 ML VIAL IVP PRN (14:50)
[2022-01-14] MEDS ORDERED: *HR* HYDROcodone/Acet 5/325 mg TABLET PO PRN (14:50)
[2022-01-14] MEDS ORDERED: Naloxone 0.4 MG/ML INJ IVP PRN (14:50)
[2022-01-14] MEDS ORDERED: Acetaminophen 325 MG TABLET PO PRN (14:50)
[2022-01-14] MEDS ORDERED: Dextrose 4 GM Chewable Tablets PO PRN ×2 (16:58)
[2022-01-14] MEDS ORDERED: *HR* Dextrose 50 % in Water (Syg) 50 ML SYRINGE IVP PRN (16:58)
[2022-01-14] MEDS ORDERED: D5% in Water 1,000 ML IVC PRN (16:58)
[2022-01-14] MEDS ORDERED: levoFLOXacin 750 MG/150 ML 750 MG/150 ML BAG IVPB SCH (17:00)
[2022-01-14] MEDS ORDERED: *HR* Heparin 5,000 UNIT/ML VIAL IVP PRN ×2 (17:08)
[2022-01-14] MEDS ORDERED: *HR* Heparin 5,000 UNIT/ML VIAL IVP ONE (17:08)
[2022-01-14] MEDS: Insulin LISPRO 300 UNITS/3 ML VIAL SUBQ SCH ×2 (17:09→21:54)
[2022-01-14] MEDS ORDERED: Heparin 25,000UNIT/250ML 1/2NS 25,000 UNIT/250 ML IV.SOLN IVC SCH (17:15)
[2022-01-14 20:35] LABS: Hematocrit 29.9 % (37.5-50.1); Mean Corpuscular HGB Conc 30.1 g/dL (31.6-35.5); Mean Corpuscular Hemoglobin 27.4 pg (28.0-33.3); Mean Corpuscular Volume 90.9 fL (83.0-100.0); Mean Platelet Volume 11.2 fL (9.4-12.4); Platelet Count 170 K/mcL (140-400); Red Blood Count 3.29 M/mcL (4.19-5.50); Red Cell Distribution Width 20.7 % (11.5-14.5); White Blood Count 5.6 K/mcL (4.3-11.1)
[2022-01-14 20:43] LABS: INR 1.8; Prothrombin Time 20.1 Seconds (9.4-12.1)
[2022-01-14 20:45] LABS: Activated Partial Thrombo Time 27.6 Seconds (26.0-36.0)
[2022-01-14 20:49] LABS: Heparin anti-factor XA UFH 1.63 IU/mL (0.30-0.70)
[2022-01-14] MEDS: Heparin 25,000UNIT/250ML 1/2NS 25,000 UNIT/250 ML IV.SOLN IVC SCH (22:02)
[2022-01-15 04:06] LABS: INR 1.9; Prothrombin Time 21.3 Seconds (9.4-12.1)
[2022-01-15 04:07] LABS: Basophils % 0.4 %; Eosinophils % 0.7 %; Hematocrit 28.6 % (37.5-50.1); Hemoglobin 8.5 g/dL (12.9-16.9); Immature Granulocytes % 0.4 % (0-4); Lymphocytes # 0.5 K/mcL (0.6-4.6); Lymphocytes % 8.4 %; Mean Corpuscular HGB Conc 29.7 g/dL (31.6-35.5); Mean Corpuscular Hemoglobin 26.8 pg (28.0-33.3); Mean Corpuscular Volume 90.2 fL (83.0-100.0); Mean Platelet Volume 11.7 fL (9.4-12.4); Monocytes # 0.4 K/mcL (0.0-1.3); Monocytes % 7.4 %; Neutrophils # 4.4 K/mcL (1.6-8.9); Platelet Count 179 K/mcL (140-400); Red Blood Count 3.17 M/mcL (4.19-5.50); Red Cell Distribution Width 20.3 % (11.5-14.5); Segmented Neutrophils % 82.7 %; White Blood Count 5.4 K/mcL (4.3-11.1)
[2022-01-15 04:09] LABS: Activated Partial Thrombo Time 41.7 Seconds (26.0-36.0)
[2022-01-15 04:25] LABS: BUN/Creatinine Ratio 23 (6-26); Blood Urea Nitrogen 18 mg/dL (8-23); Calcium 8.6 mg/dL (8.6-10.3); Carbon Dioxide 23 mEq/L (23-29); Chloride 108 mEq/L (98-107); Glucose 72 mg/dL (70-105); Magnesium 1.8 mg/dL (1.6-2.6); Osmolality,Calculated 290 (280-300); Phosphorous 4.4 mg/dL (2.7-4.5); Sodium 140 mEq/L (136-145); eGFR For African Americans > 60 (> 60); eGFR For Non-African Americans > 60 (> 60)
[2022-01-15] MEDS: Insulin LISPRO 300 UNITS/3 ML VIAL SUBQ SCH ×4 (08:00→19:37)
[2022-01-15] MEDS ORDERED: Sennosides/Docusate Sodium TABLET PO PRN (12:13)
[2022-01-15] MEDS ORDERED: Bisacodyl 10 MG RECTAL SUPPOSITORY RC PRN (12:13)
[2022-01-15] MEDS ORDERED: Melatonin 3 MG TABLET PO PRN (12:13)
[2022-01-15] MEDS ORDERED: MOM Conc 10 ML UD.LIQ PO PRN (12:13)
[2022-01-15] MEDS: Heparin 25,000UNIT/250ML 1/2NS 25,000 UNIT/250 ML IV.SOLN IVC SCH (12:17)
[2022-01-15] MEDS ORDERED: polyethylene glycoL 3350 17 GM POWD.PACK PO PRN (13:02)
[2022-01-15] MEDS ORDERED: Artificial Tears SOLN 15 ML BOTTLE LEFT EYE PRN (13:08)
[2022-01-15 15:54] LABS: RBC,Pleural Fluid < 2000 RBC/mcL
[2022-01-15 15:58] LABS: Appearance of Pleural Fl Clear (Clear)
[2022-01-15 16:26] LABS: Glucose,Pleural Fluid 91 mg/dL (No Ref Range); LDH,Pleural Fluid 68 Units/L (No Ref Range); Total Protein,Pleural Fluid < 2.0 g/dL
[2022-01-15 16:59] LABS: Basophils,Pleural Fluid 0 %; Eosinophils,Pleural Fluid 0 %
[2022-01-15] MEDS: Piperacillin/Tazobactam 3.375 GM in 0.9 % Sodium Chloride Mini Bag 100 ML IVPB SCH ×2 (17:45→23:53)
[2022-01-15] MEDS: Apixaban 5 MG TABLET PO SCH (19:50)
[2022-01-15] MEDS ORDERED: *HR* Amiodarone 200 MG TABLET PO SCH (21:00)
[2022-01-16] MEDS: Metoprolol XL (24 HR) Succ 25 MG TAB.ER.24H PO SCH (07:44)
[2022-01-16] MEDS: Apixaban 5 MG TABLET PO SCH ×2 (07:44→21:40)
[2022-01-16] MEDS: Aspirin 81 MG TAB.CHEW PO SCH (07:44)
[2022-01-16] MEDS: *HR* Amiodarone 200 MG TABLET PO SCH (07:44)
[2022-01-16] MEDS: Furosemide 40 MG/4 ML VIAL IVP SCH (07:46)
[2022-01-16] MEDS: Piperacillin/Tazobactam 3.375 GM in 0.9 % Sodium Chloride Mini Bag 100 ML IVPB SCH ×3 (07:47→23:37)
[2022-01-16] MEDS: Insulin LISPRO 300 UNITS/3 ML VIAL SUBQ SCH ×4 (08:31→20:55)
[2022-01-16 09:03] LABS: Basophils % 0.1 %; Eosinophils % 0.2 %; Hematocrit 35.9 % (37.5-50.1); Immature Granulocytes % 0.4 % (0-4); Lymphocytes # 0.5 K/mcL (0.6-4.6); Lymphocytes % 4.9 %; Mean Corpuscular HGB Conc 29.8 g/dL (31.6-35.5); Mean Corpuscular Hemoglobin 26.7 pg (28.0-33.3); Mean Corpuscular Volume 89.5 fL (83.0-100.0); Mean Platelet Volume 11.4 fL (9.4-12.4); Monocytes # 0.5 K/mcL (0.0-1.3); Monocytes % 5.1 %; Neutrophils # 8.8 K/mcL (1.6-8.9); Platelet Count 210 K/mcL (140-400); Red Blood Count 4.01 M/mcL (4.19-5.50); Red Cell Distribution Width 20.5 % (11.5-14.5); Segmented Neutrophils % 89.3 %
[2022-01-16 09:04] LABS: Hemoglobin 10.7 g/dL (12.9-16.9); White Blood Count 9.9 K/mcL (4.3-11.1)
[2022-01-16 09:18] LABS: Alanine Aminotransferase 9 Units/L (7-52); Albumin 3.1 g/dL (3.5-5.7); Albumin/Globulin Ratio 1.1 (1.1-2.2); Alkaline Phosphatase 85 Units/L (34-104); Aspartate Amino Transferase 15 Units/L (13-39); BUN/Creatinine Ratio 25 (6-26); Bilirubin,Total 0.6 mg/dL (0.3-1.0); Blood Urea Nitrogen 17 mg/dL (8-23); Calcium 8.7 mg/dL (8.6-10.3); Carbon Dioxide 25 mEq/L (23-29); Chloride 106 mEq/L (98-107); Globulin 2.9 g/dL (2.4-3.5); Glucose 105 mg/dL (70-105); Osmolality,Calculated 288 (280-300); Potassium 3.8 mEq/L (3.5-5.1); Sodium 138 mEq/L (136-145); eGFR For African Americans > 60 (> 60); eGFR For Non-African Americans > 60 (> 60)
[2022-01-16] MEDS ORDERED: Sennosides/Docusate Sodium TABLET PO PRN (11:33)
[2022-01-16] MEDS ORDERED: polyethylene glycoL 3350 17 GM POWD.PACK PO PRN (11:33)
[2022-01-16] MEDS ORDERED: Bisacodyl 10 MG RECTAL SUPPOSITORY RC PRN (11:33)
[2022-01-17] MEDS: Insulin LISPRO 300 UNITS/3 ML VIAL SUBQ SCH ×4 (08:21→20:01)
[2022-01-17] MEDS: Piperacillin/Tazobactam 3.375 GM in 0.9 % Sodium Chloride Mini Bag 100 ML IVPB SCH ×2 (08:49→16:45)
[2022-01-17] MEDS: Apixaban 5 MG TABLET PO SCH ×2 (08:50→20:00)
[2022-01-17] MEDS: Furosemide 40 MG/4 ML VIAL IVP SCH (08:50)
[2022-01-17] MEDS: Aspirin 81 MG TAB.CHEW PO SCH (08:50)
[2022-01-17] MEDS: *HR* Amiodarone 200 MG TABLET PO SCH (08:50)
[2022-01-17] MEDS: Metoprolol XL (24 HR) Succ 25 MG TAB.ER.24H PO SCH ×3 (08:51→09:04)
[2022-01-18] MEDS: Piperacillin/Tazobactam 3.375 GM in 0.9 % Sodium Chloride Mini Bag 100 ML IVPB SCH ×2 (00:30→07:23)
[2022-01-18 01:00] LABS: Fluid Source for Albumin L PLEURAL FLUID
[2022-01-18] MEDS: Metoprolol XL (24 HR) Succ 25 MG TAB.ER.24H PO SCH (07:22)
[2022-01-18] MEDS: *HR* Amiodarone 200 MG TABLET PO SCH (07:22)
[2022-01-18] MEDS: Furosemide 40 MG/4 ML VIAL IVP SCH (07:23)
[2022-01-18] MEDS: Aspirin 81 MG TAB.CHEW PO SCH (07:23)
[2022-01-18] MEDS: Apixaban 5 MG TABLET PO SCH (07:23)
[2022-01-18] MEDS: Insulin LISPRO 300 UNITS/3 ML VIAL SUBQ SCH ×2 (07:36→12:18)
[2022-01-18 16:09] VITALS: BP 100/63; PULSE 89; TEMP 97.6; O2SAT 96
== END 2022-01-18 16:45 | disposition hospice, home (50) | DRG 193 ==
LOC: 2NENU → SUATTDRO 14:50
PROVIDERS: ADMIT Pharmacist; ATTEND Internal Medicine